=== PATIENT | female | born 1940 | race Caucasian/White ===

== ENCOUNTER 2016-04-24 13:55 | Inpatient (IN) | payer MEDICARE ==
[2016-04-24] MEDS ORDERED: ENOXAPARIN SODIUM INJ 30 MG/0.3 ML DISP.SYRIN SUBCUT ONE (15:30)
[2016-04-24 15:52] LABS: HEMATOCRIT 33.7 % (36.0-47.0); HGB HCT DIFFERENCE -0.7; MEAN CORPUSCULAR HEMOGLOBIN 30.7 pg (27.0-33.4); MEAN CORPUSCULAR HGB CONC 32.8 g/dL (32.0-36.0); MEAN CORPUSCULAR VOLUME 94 fl (80-97); WHITE BLOOD COUNT 8.2 10^3/uL (4.0-10.5)
[2016-04-24 16:10] LABS: ALANINE AMINOTRANSFERASE 22 U/L (9-52); ALBUMIN 3.7 g/dL (3.5-5.0); ALKALINE PHOSPHATASE 73 U/L (38-126); ANION GAP 10 (5-19); ASPARTATE AMINO TRANSFERASE 26 U/L (14-36); BLOOD UREA NITROGEN 7 mg/dL (7-20); CARBON DIOXIDE 26 mmol/L (22-30); CHLORIDE 103 mmol/L (98-107); CREATININE RESULT 0.84 mg/dL (0.52-1.25); POTASSIUM 4.2 mmol/L (3.6-5.0); SODIUM 139.3 mmol/L (137-145)
[2016-04-24 16:11] LABS: BILIRUBIN,TOTAL 0.4 mg/dL (0.2-1.3); CALCIUM 8.8 mg/dL (8.4-10.2); GLUCOSE 119 mg/dL (75-110)
[2016-04-24] MEDS: NORMAL SALINE 1000 ML 1,000 ML IV PRN (18:58)
[2016-04-24 20:49] LABS: APPEARANCE,URINE CLEAR; BILIRUBIN,URINE NEGATIVE (NEGATIVE); GLUCOSE, URINE NEGATIVE (NEGATIVE); KETONES,URINE NEGATIVE (NEGATIVE); LEUKOCYTE ESTERASE,URINE NEGATIVE (NEGATIVE); NITRITE,URINE NEGATIVE (NEGATIVE); PROTEIN,URINE NEGATIVE (NEGATIVE); URINE SPECIFIC GRAVITY 1.005; UROBILINOGEN,URINE NEGATIVE mg/dL (<2.0)
[2016-04-24] MEDS ORDERED: (PENDING PHARMACY ID) (Doxepin Hcl [Silenor] 6 MG) PO SCH (22:00)
[2016-04-24] MEDS ORDERED: (PENDING PHARMACY ID) (Diclofenac Sodium [Diclofenac Sodium] 4 GM) TOP SCH (22:00)
[2016-04-24] MEDS: CYCLOSPORINE 0.05% OPH EMULSIO 0.4 ML DROPERETTE OU SCH (22:16)
[2016-04-24] MEDS: METRONIDAZOLE 500 MG TABLET PO SCH (22:16)
[2016-04-24] MEDS: DONEPEZIL HCL 5 MG TABLET PO SCH (22:16)
[2016-04-24] MEDS: ALPRAZOLAM 0.5 MG TABLET PO SCH (23:07)
[2016-04-24] MEDS: OXYCODONE HCL IR 5 MG TABLET PO SCH (23:07)
[2016-04-25] MEDS: OXYCODONE HCL IR 5 MG TABLET PO SCH ×4 (06:49→23:57)
[2016-04-25] MEDS: ALPRAZOLAM 0.5 MG TABLET PO SCH ×4 (06:50→23:57)
[2016-04-25] MEDS: METRONIDAZOLE 500 MG TABLET PO SCH ×3 (06:53→21:59)
[2016-04-25] MEDS: ENOXAPARIN SODIUM INJ 30 MG/0.3 ML DISP.SYRIN SUBCUT SCH (08:17)
[2016-04-25] MEDS: VENLAFAXINE HCL 37.5 MG CAP.SR.24H PO SCH (08:18)
[2016-04-25] MEDS ORDERED: (PENDING PHARMACY ID) (Memantine Hcl [Namenda Xr] 28 MG) PO SCH (10:00)
[2016-04-25] MEDS: AMLODIPINE BESYLATE 5 MG TABLET PO SCH (12:10)
[2016-04-25] MEDS: CYCLOSPORINE 0.05% OPH EMULSIO 0.4 ML DROPERETTE OU SCH ×2 (12:11→21:59)
[2016-04-25] MEDS: LANSOPRAZOLE 30 MG TAB.RAP.DR PO SCH (12:11)
[2016-04-25] MEDS: TIOTROPIUM BROMIDE DPI 5 CAP/KIT (18 MCG/CAP) IH SCH (12:11)
[2016-04-25] MEDS: FOLIC ACID 1 MG TABLET PO SCH (12:11)
--- NOTE | 2016-04-25 18:00 | PDOC H&P ---
History of Present Illness Admission Date/PCP: 04/24/16 13:55 MARIO TO, History of Present Illness: ANCA TOSCANO is a 76 year old female, she came to the office because of profuse diarrhea and vomiting. She said she is not able to keep any food down. She had C. difficile colitis previously, March 2016. She was admitted directly from the office into the hospital. The stool was positive for C. difficile toxin Past Medical History Cardiac Medical History: Reports: Hyperlipidema, Hypertension Pulmonary Medical History: Reports: Asthma, Bronchitis, Chronic Obstructive Pulmonary Disease (COPD), Pneumonia, Tuberculosis GI Medical History: Reports: Diverticulitis Musculoskeltal Medical History: Reports: Arthritis Psychiatric Medical History: Reports: Depression Hematology: Reports: Anemia Past Surgical History Past Surgical History: Reports: Appendectomy, Carotid Endarterectomy - Left side , Cholecystectomy, Hysterectomy, Vascular Surgery - left carotid endarectomy Social History Smoking Status: Former Smoker Frequency of Alcohol Use: None Hx Recreational Drug Use: No Drugs: None Hx Prescription Drug Abuse: No Family History Family History: Reviewed & Not Pertinent Parental Family History Reviewed: Yes Children Family History Reviewed: Yes Sibling(s) Family History Reviewed.: Yes Medication/Allergy Home Medications: Lisinopril 2.5 mg PO DAILY 07/07/13 Alprazolam [Alprazolam] 0.5 mg PO Q6 04/24/16 Amlodipine Besylate [Amlodipine Besylate] 5 mg PO DAILY 04/24/16 Cyclosporine 0.05% Oph Emulsio [Restasis 0.05% Oph Emulsion Pf 0.4 ml] 1 drop OU Q12 04/24/16 Diclofenac Sodium 4 gm TOP QID 04/24/16 Donepezil HCl [Aricept 5 mg Tablet] 5 mg PO QHS 04/24/16 Doxepin HCl [Silenor] 6 mg PO QHS 04/24/16 Folic Acid [Folic Acid] 1 mg PO DAILY 04/24/16 Memantine HCl [Namenda Xr] 28 mg PO DAILY 04/24/16 Oxycodone HCl 10 mg PO Q6 04/24/16 Pantoprazole Sodium [Protonix] 40 mg PO DAILY 04/24/16 Tiotropium [place] [Spiriva Handihaler 5 Cap/Kit (18 Mcg/Cap)] 1 puff IH DAILY 04/24/16 Venlafaxine HCl ER [Effexor Xr 37.5 mg Cap.sr] 37.5 mg PO WBRKFST 04/24/16 Allergies/Adverse Reactions: levofloxacin [From Levaquin] Allergy (Unknown, Verified 07/07/13 17:41) propoxyphene napsylate [From Darvocet-N 100] Allergy (Verified 07/07/13 17:41) hydromorphone HCl [From Dilaudid] Adverse Reaction (Verified 03/09/15 21:33) morphine [Morphine] Adverse Reaction (Verified 07/07/13 17:41) VOMITING oxycodone HCl [From Percocet] Adverse Reaction (Verified 02/12/15 18:44) VOMITING Review of Systems Constitutional: PRESENT: chills Eyes: ABSENT: visual disturbances Ears: ABSENT: hearing changes Cardiovascular: ABSENT: chest pain, dyspnea on exertion, edema, orthropnea, palpitations Respiratory: ABSENT: cough, hemoptysis Gastrointestinal: PRESENT: diarrhea Genitourinary: ABSENT: dysuria, hematuria Musculoskeletal: ABSENT: joint swelling Integumentary: ABSENT: rash, wounds Neurological: ABSENT: abnormal gait, abnormal speech, confusion, dizziness, focal weakness, syncope Psychiatric: ABSENT: anxiety, depression, homidical ideation, suicidal ideation Endocrine: ABSENT: cold intolerance, heat intolerance, menstrual abnormalities, polydipsia, polyuria Hematologic/Lymphatic: ABSENT: easy bleeding, easy bruising, lymphadenopathy Physical Exam Vital Signs: Temp Pulse Resp BP Pulse Ox 97.9 F 97 18 132/70 H 93 04/25/16 15:13 04/25/16 15:13 04/25/16 15:13 04/25/16 15:13 04/25/16 15:13 Intake & Output 04/24/16 04/25/16 04/26/16 06:59 06:59 06:59 Intake Total 1350 760 Output Total 1300 600 Balance 50 160 Weight 39 kg General appearance: PRESENT: no acute distress, well-developed, well-nourished Head exam: PRESENT: atraumatic, normocephalic Eye exam: PRESENT: conjunctiva pink, EOMI, PERRLA Ear exam: PRESENT: normal external ear exam Mouth exam: PRESENT: moist, tongue midline Neck exam: PRESENT: full ROM Respiratory exam: PRESENT: clear to auscultation bro Cardiovascular exam: PRESENT: RRR, +S1, +S2 Vascular exam: PRESENT: normal capillary refill GI/Abdominal exam: PRESENT: normal bowel sounds, soft Rectal exam: PRESENT: deferred Neurological exam: PRESENT: alert, awake, oriented to person, oriented to place , oriented to time, oriented to situation, CN II-XII grossly intact. ABSENT: motor sensory deficit Skin exam: PRESENT: dry, intact, warm Results Laboratory Results: 04/24/16 15:43 04/24/16 15:43 04/24/16 20:03 Urine Color STRAW Urine Appearance CLEAR Urine pH 7.0 Ur Specific [place] 1.005 Urine Protein NEGATIVE Urine Glucose (UA) NEGATIVE Urine Ketones NEGATIVE Urine Blood NEGATIVE Urine Nitrite NEGATIVE Ur Leukocyte Esterase NEGATIVE Urine WBC (Auto) 0 Assessment & Plan - Diagnosis (1) Enterocolitis due to Clostridium difficile Is this a current diagnosis for this admission?: YesPlan: She is admitted for management
[2016-04-25] MEDS: DONEPEZIL HCL 5 MG TABLET PO SCH (21:59)
[2016-04-26] MEDS: ALPRAZOLAM 0.5 MG TABLET PO SCH ×4 (05:38→23:31)
[2016-04-26] MEDS: OXYCODONE HCL IR 5 MG TABLET PO SCH ×4 (05:38→23:31)
[2016-04-26] MEDS: METRONIDAZOLE 500 MG TABLET PO SCH ×3 (05:38→21:51)
[2016-04-26] MEDS: AMLODIPINE BESYLATE 5 MG TABLET PO SCH (11:38)
[2016-04-26] MEDS: LANSOPRAZOLE 30 MG TAB.RAP.DR PO SCH (11:39)
[2016-04-26] MEDS: VENLAFAXINE HCL 37.5 MG CAP.SR.24H PO SCH (11:39)
[2016-04-26] MEDS: FOLIC ACID 1 MG TABLET PO SCH (11:39)
[2016-04-26] MEDS: ENOXAPARIN SODIUM INJ 30 MG/0.3 ML DISP.SYRIN SUBCUT SCH (11:40)
[2016-04-26] MEDS: TIOTROPIUM BROMIDE DPI 5 CAP/KIT (18 MCG/CAP) IH SCH (11:40)
[2016-04-26] MEDS: CYCLOSPORINE 0.05% OPH EMULSIO 0.4 ML DROPERETTE OU SCH ×2 (12:20→21:51)
--- NOTE | 2016-04-26 19:35 | PDOC PROGRESS REPORT ---
Subjective Progress Note for:: 04/26/16 Subjective:: Patient was admitted because of C. difficile colitis and dehydration, she is still requiring IV fluid Physical Exam Vital Signs: Temp Pulse Resp BP Pulse Ox 98.5 F 108 H 16 146/82 H 92 04/26/16 17:06 04/26/16 17:06 04/26/16 17:06 04/26/16 17:06 04/26/16 17:06 Intake & Output 04/25/16 04/26/16 04/27/16 06:59 06:59 06:59 Intake Total 1350 2137 2500 Output Total 1300 2600 900 Balance 50 -463 1600 Weight 39 kg 39 kg General appearance: PRESENT: no acute distress Eye exam: PRESENT: PERRLA Respiratory exam: PRESENT: clear to auscultation bro Cardiovascular exam: PRESENT: +S1, +S2 GI/Abdominal exam: PRESENT: soft Neurological exam: PRESENT: alert, CN II-XII grossly intact Results Laboratory Results: 04/24/16 15:43 04/24/16 15:43 Assessment & Plan - Diagnosis (1) Enterocolitis due to Clostridium difficile Is this a current diagnosis for this admission?: Yes (2) COPD (chronic obstructive pulmonary disease) Qualifiers: COPD type: unspecified COPD Qualified Code(s): J44.9 - Chronic obstructive pulmonary disease, unspecified (3) Gastroparesis Is this a current diagnosis for this admission?: Yes (4) Hypertension Qualifiers: Hypertension type: essential hypertension Qualified Code(s): I10 - Essential (primary) hypertension Is this a current diagnosis for this admission?: Yes
[2016-04-26] MEDS: DONEPEZIL HCL 5 MG TABLET PO SCH (21:51)
[2016-04-27] MEDS: ALPRAZOLAM 0.5 MG TABLET PO SCH ×4 (05:09→23:05)
[2016-04-27] MEDS: OXYCODONE HCL IR 5 MG TABLET PO SCH ×4 (05:09→23:05)
[2016-04-27] MEDS: METRONIDAZOLE 500 MG TABLET PO SCH ×3 (05:09→23:05)
[2016-04-27] MEDS: CYCLOSPORINE 0.05% OPH EMULSIO 0.4 ML DROPERETTE OU SCH ×2 (11:22→23:05)
[2016-04-27] MEDS: ENOXAPARIN SODIUM INJ 30 MG/0.3 ML DISP.SYRIN SUBCUT SCH (12:17)
[2016-04-27] MEDS: LANSOPRAZOLE 30 MG TAB.RAP.DR PO SCH (12:18)
[2016-04-27] MEDS: FOLIC ACID 1 MG TABLET PO SCH (12:18)
[2016-04-27] MEDS: TIOTROPIUM BROMIDE DPI 5 CAP/KIT (18 MCG/CAP) IH SCH (12:18)
[2016-04-27] MEDS: VENLAFAXINE HCL 37.5 MG CAP.SR.24H PO SCH (12:18)
--- NOTE | 2016-04-27 19:11 | PDOC PROGRESS REPORT ---
Subjective Progress Note for:: 04/27/16 Subjective:: She continues to have diarrhea, she was admitted because of recurrent C. difficile colitis. With profuse diarrhea and dehydration, vancomycin will be added by mouth daily Physical Exam Vital Signs: Temp Pulse Resp BP Pulse Ox 98.3 F 97 18 143/71 H 93 04/27/16 17:35 04/27/16 17:35 04/27/16 17:35 04/27/16 17:35 04/27/16 17:35 Intake & Output 04/26/16 04/27/16 04/28/16 06:59 06:59 06:59 Intake Total 2137 3800 1740 Output Total 2600 3030 1300 Balance -463 770 440 Weight 39 kg General appearance: PRESENT: mild distress Eye exam: PRESENT: PERRLA Respiratory exam: PRESENT: clear to auscultation bro Cardiovascular exam: PRESENT: +S1, +S2 GI/Abdominal exam: PRESENT: soft Results Laboratory Results: 04/24/16 15:43 04/24/16 15:43 Assessment & Plan - Diagnosis (1) Enterocolitis due to Clostridium difficile Is this a current diagnosis for this admission?: YesPlan: Continue IV fluid and start by mouth vancomycin (2) COPD (chronic obstructive pulmonary disease) Qualifiers: COPD type: unspecified COPD Qualified Code(s): J44.9 - Chronic obstructive pulmonary disease, unspecified (3) Gastroparesis Is this a current diagnosis for this admission?: Yes (4) Hypertension Qualifiers: Hypertension type: essential hypertension Qualified Code(s): I10 - Essential (primary) hypertension Is this a current diagnosis for this admission?: Yes
[2016-04-27] MEDS ORDERED: VANCOMYCIN HCL INJ 500 MG VIAL ONE (23:04)
[2016-04-27] MEDS: DONEPEZIL HCL 5 MG TABLET PO SCH (23:05)
[2016-04-28] MEDS: OXYCODONE HCL IR 5 MG TABLET PO SCH ×4 (05:14→23:47)
[2016-04-28] MEDS: METRONIDAZOLE 500 MG TABLET PO SCH ×3 (05:14→22:40)
[2016-04-28] MEDS: ALPRAZOLAM 0.5 MG TABLET PO SCH ×4 (05:14→23:47)
[2016-04-28] MEDS: VANCOMYCIN HCL INJ 500 MG VIAL PO SCH ×4 (05:14→23:47)
[2016-04-28] MEDS: VENLAFAXINE HCL 37.5 MG CAP.SR.24H PO SCH (09:26)
[2016-04-28] MEDS: LANSOPRAZOLE 30 MG TAB.RAP.DR PO SCH (09:27)
[2016-04-28] MEDS: AMLODIPINE BESYLATE 5 MG TABLET PO SCH (09:27)
[2016-04-28] MEDS: FOLIC ACID 1 MG TABLET PO SCH (09:28)
[2016-04-28] MEDS: ENOXAPARIN SODIUM INJ 30 MG/0.3 ML DISP.SYRIN SUBCUT SCH (09:28)
[2016-04-28] MEDS: TIOTROPIUM BROMIDE DPI 5 CAP/KIT (18 MCG/CAP) IH SCH (09:28)
[2016-04-28] MEDS: CYCLOSPORINE 0.05% OPH EMULSIO 0.4 ML DROPERETTE OU SCH ×2 (09:37→22:46)
[2016-04-28] MEDS: NORMAL SALINE 1000 ML 1,000 ML IV PRN (22:40)
[2016-04-28] MEDS: DONEPEZIL HCL 5 MG TABLET PO SCH (22:40)
[2016-04-29] MEDS: ALPRAZOLAM 0.5 MG TABLET PO SCH ×4 (06:44→23:07)
[2016-04-29] MEDS: METRONIDAZOLE 500 MG TABLET PO SCH ×3 (06:45→21:35)
[2016-04-29] MEDS: OXYCODONE HCL IR 5 MG TABLET PO SCH ×4 (06:45→23:07)
[2016-04-29] MEDS: VANCOMYCIN HCL INJ 500 MG VIAL PO SCH ×4 (06:45→23:07)
[2016-04-29] MEDS: AMLODIPINE BESYLATE 5 MG TABLET PO SCH (10:18)
[2016-04-29] MEDS: FOLIC ACID 1 MG TABLET PO SCH (10:18)
[2016-04-29] MEDS: LANSOPRAZOLE 30 MG TAB.RAP.DR PO SCH (10:18)
[2016-04-29] MEDS: VENLAFAXINE HCL 37.5 MG CAP.SR.24H PO SCH (10:18)
[2016-04-29] MEDS: TIOTROPIUM BROMIDE DPI 5 CAP/KIT (18 MCG/CAP) IH SCH (10:19)
[2016-04-29] MEDS: ENOXAPARIN SODIUM INJ 30 MG/0.3 ML DISP.SYRIN SUBCUT SCH (10:19)
[2016-04-29] MEDS: CYCLOSPORINE 0.05% OPH EMULSIO 0.4 ML DROPERETTE OU SCH ×2 (11:10→21:36)
--- NOTE | 2016-04-29 20:52 | PDOC PROGRESS REPORT ---
Subjective Progress Note for:: 04/28/16 Subjective:: She continues to have diarrhea, she was admitted because of recurrent C. difficile colitis. With profuse diarrhea and dehydration, vancomycin will be added by mouth daily Physical Exam Vital Signs: Temp Pulse Resp BP Pulse Ox 98.2 F 95 14 118/62 94 04/28/16 16:15 04/28/16 16:15 04/28/16 16:15 04/28/16 16:15 04/28/16 16:15 Intake & Output 04/27/16 04/28/16 04/29/16 06:59 06:59 06:59 Intake Total 3800 2720 1700 Output Total 3030 2670 1900 Balance 770 50 -200 General appearance: PRESENT: no acute distress Eye exam: PRESENT: PERRLA Respiratory exam: PRESENT: clear to auscultation bro Cardiovascular exam: PRESENT: +S1, +S2 GI/Abdominal exam: PRESENT: soft Results Laboratory Results: 04/24/16 15:43 04/24/16 15:43 04/25/16 07:16 Stool - Stool - Final 04/25/16 07:16 Stool - Stool Stool Culture - Final NO SALMONELLA, SHIGELLA, CAMPYLOBACTER, OR E.COLI 0157 RECOVERED. NEGATIVE FOR SHIGA TOXINS 1&2. Assessment & Plan - Diagnosis (1) Enterocolitis due to Clostridium difficile Is this a current diagnosis for this admission?: Yes (2) COPD (chronic obstructive pulmonary disease) Qualifiers: COPD type: unspecified COPD Qualified Code(s): J44.9 - Chronic obstructive pulmonary disease, unspecified (3) Gastroparesis Is this a current diagnosis for this admission?: Yes (4) Hypertension Qualifiers: Hypertension type: essential hypertension Qualified Code(s): I10 - Essential (primary) hypertension Is this a current diagnosis for this admission?: Yes
[2016-04-29] MEDS: DONEPEZIL HCL 5 MG TABLET PO SCH (21:35)
[2016-04-30] MEDS: METRONIDAZOLE 500 MG TABLET PO SCH (06:17)
[2016-04-30] MEDS: ALPRAZOLAM 0.5 MG TABLET PO SCH ×2 (06:17→11:33)
[2016-04-30] MEDS: OXYCODONE HCL IR 5 MG TABLET PO SCH ×2 (06:17→11:33)
[2016-04-30] MEDS: VANCOMYCIN HCL INJ 500 MG VIAL PO SCH ×2 (06:17→11:30)
[2016-04-30] MEDS: ENOXAPARIN SODIUM INJ 30 MG/0.3 ML DISP.SYRIN SUBCUT SCH (09:56)
[2016-04-30] MEDS: LANSOPRAZOLE 30 MG TAB.RAP.DR PO SCH (10:04)
[2016-04-30] MEDS: AMLODIPINE BESYLATE 5 MG TABLET PO SCH (10:04)
[2016-04-30] MEDS: VENLAFAXINE HCL 37.5 MG CAP.SR.24H PO SCH (10:04)
[2016-04-30] MEDS: FOLIC ACID 1 MG TABLET PO SCH (10:04)
[2016-04-30] MEDS: CYCLOSPORINE 0.05% OPH EMULSIO 0.4 ML DROPERETTE OU SCH (10:45)
[2016-04-30 11:55] VITALS: BP 127/75
--- NOTE | 2016-04-30 13:28 | PDOC PROGRESS REPORT ---
Subjective Progress Note for:: 04/29/16 Subjective:: She continues to have diarrhea, she was admitted because of recurrent C. difficile colitis. With profuse diarrhea and dehydration, vancomycin will be added by mouth daily Physical Exam Vital Signs: Temp Pulse Resp BP Pulse Ox 98.0 F 95 16 140/83 H 95 04/29/16 19:32 04/29/16 19:32 04/29/16 19:32 04/29/16 19:32 04/29/16 19:32 Intake & Output 04/28/16 04/29/16 04/30/16 06:59 06:59 06:59 Intake Total 2720 3690 2100 Output Total 2670 2900 600 Balance 50 790 1500 General appearance: PRESENT: no acute distress Eye exam: PRESENT: PERRLA Cardiovascular exam: PRESENT: +S1, +S2 GI/Abdominal exam: PRESENT: soft Neurological exam: PRESENT: alert Results Laboratory Results: 04/24/16 15:43 04/24/16 15:43 Assessment & Plan - Diagnosis (1) Enterocolitis due to Clostridium difficile Is this a current diagnosis for this admission?: Yes (2) COPD (chronic obstructive pulmonary disease) Qualifiers: COPD type: unspecified COPD Qualified Code(s): J44.9 - Chronic obstructive pulmonary disease, unspecified (3) Gastroparesis Is this a current diagnosis for this admission?: Yes (4) Hypertension Qualifiers: Hypertension type: essential hypertension Qualified Code(s): I10 - Essential (primary) hypertension Is this a current diagnosis for this admission?: Yes
--- NOTE | 2016-04-30 13:30 | PDOC DISCHARGE SUMMARY ---
General - Admit/Disc Date/PCP Admission Date/Primary Care Provider: 04/27/16 19:58 MARIO TO, Discharge Date: 04/30/16 - Discharge Diagnosis (1) Enterocolitis due to Clostridium difficile Is this a current diagnosis for this admission?: Yes (3) Hypertension Is this a current diagnosis for this admission?: Yes - Additional Information Discharge Activity: Activity As Tolerated, Balance Activity w/Rest, Slowly Increase Activity Home Medications: Lisinopril 2.5 mg PO DAILY 07/07/13 Alprazolam [Alprazolam] 0.5 mg PO Q6 04/24/16 Amlodipine Besylate [Amlodipine Besylate] 5 mg PO DAILY 04/24/16 Cyclosporine 0.05% Oph Emulsio [Restasis 0.05% Oph Emulsion Pf 0.4 ml] 1 drop OU Q12 04/24/16 Diclofenac Sodium 4 gm TOP QID 04/24/16 Donepezil HCl [Aricept 5 mg Tablet] 5 mg PO QHS 04/24/16 Doxepin HCl [Silenor] 6 mg PO QHS 04/24/16 Folic Acid [Folic Acid] 1 mg PO DAILY 04/24/16 Memantine HCl [Namenda Xr] 28 mg PO DAILY 04/24/16 Oxycodone HCl 10 mg PO Q6 04/24/16 Pantoprazole Sodium [Protonix] 40 mg PO DAILY 04/24/16 Tiotropium [place] [Spiriva Handihaler 5 Cap/Kit (18 Mcg/Cap)] 1 puff IH DAILY 04/24/16 Venlafaxine HCl ER [Effexor Xr 37.5 mg Cap.sr] 37.5 mg PO WBRKFST 04/24/16 History of Present Illness History of Present Illness: ANCA TOSCANO is a 76 year old female, she came to the office because of profuse diarrhea and vomiting. She said she is not able to keep any food down. She had C. difficile colitis previously, March 2016. She was admitted directly from the office into the hospital. The stool was positive for C. difficile toxin Hospital Course Hospital Course: Patient was admitted because of recurrent C. difficile colitis with dehydration , she was treated with IV fluid and by mouth Flagyl. She continued to have diarrhea and by mouth vancomycin was added to the regimen. She is now stable enough for discharge Physical Exam Vital Signs: Temp Pulse Resp BP Pulse Ox 97.6 F 91 16 127/75 H 100 04/30/16 11:49 04/30/16 11:49 04/30/16 11:49 04/30/16 11:49 04/30/16 11:49 Intake & Output 04/29/16 04/30/16 05/01/16 06:59 06:59 06:59 Intake Total 3690 2880 Output Total 2900 2500 Balance 790 380 General appearance: PRESENT: no acute distress Eye exam: PRESENT: PERRLA Cardiovascular exam: PRESENT: +S1, +S2 GI/Abdominal exam: PRESENT: soft Neurological exam: PRESENT: alert Results Laboratory Results: 04/24/16 15:43 04/24/16 15:43
== END 2016-04-30 13:01 | disposition home or self-care (01) | DRG 372 ==
LOC: 4W 13:55 → OBSVTOIN 04-27 19:58
PROVIDERS: ADMIT Internal Medicine; ATTEND Internal Medicine
DX: A04.7 Enterocolitis due to Clostridium difficile (principal); Z68.1 Body mass index [BMI] 19.9 or less, adult; R63.6 Underweight; J44.9 Chronic obstructive pulmonary disease, unspecified; K31.84 Gastroparesis; I10 Essential (primary) hypertension; E86.0 Dehydration; E78.5 Hyperlipidemia, unspecified; J45.909 Unspecified asthma, uncomplicated; M19.90 Unspecified osteoarthritis, unspecified site; Z79.899 Other long term (current) drug therapy; Z90.49 Acquired absence of other specified parts of digestive tract; Z90.710 Acquired absence of both cervix and uterus; Z87.891 Personal history of nicotine dependence; Z88.3 Allergy status to other anti-infective agents; Z88.6 Allergy status to analgesic agent; Z86.73 Personal history of transient ischemic attack (TIA), and cerebral infarction without residual deficits; Z86.11 Personal history of tuberculosis
CPT/HCPCS: 36415; 80048; 80076; 81001; 85027; 87045; 87205; 87493; G0378; G0379; J1650; J3370; J3490; J7030

== ENCOUNTER 2016-05-19 12:43 | Inpatient (IN) | payer MEDICARE ==
[2016-05-19 14:54] LABS: APPEARANCE,URINE CLEAR; BILIRUBIN,URINE NEGATIVE (NEGATIVE); GLUCOSE, URINE NEGATIVE (NEGATIVE); KETONES,URINE NEGATIVE (NEGATIVE); LEUKOCYTE ESTERASE,URINE NEGATIVE (NEGATIVE); NITRITE,URINE NEGATIVE (NEGATIVE); PROTEIN,URINE NEGATIVE (NEGATIVE); URINE SPECIFIC GRAVITY 1.003; UROBILINOGEN,URINE NEGATIVE mg/dL (<2.0)
[2016-05-19] MEDS: 1/2 NORMAL SALINE 1,000 ML IV PRN (15:07)
[2016-05-19 16:04] LABS: HEMATOCRIT 33.3 % (36.0-47.0); HEMOGLOBIN 11.3 g/dL (12.0-15.5); HGB HCT DIFFERENCE 0.6; MEAN CORPUSCULAR HEMOGLOBIN 30.8 pg (27.0-33.4); MEAN CORPUSCULAR HGB CONC 33.9 g/dL (32.0-36.0); MEAN CORPUSCULAR VOLUME 91 fl (80-97); RED BLOOD COUNT 3.66 10^6/uL (3.72-5.28); RED CELL DISTRIBUTION WIDTH 13.8 % (11.5-14.0); WHITE BLOOD COUNT 6.4 10^3/uL (4.0-10.5)
[2016-05-19 16:20] LABS: ALANINE AMINOTRANSFERASE 20 U/L (9-52); ALBUMIN 3.4 g/dL (3.5-5.0); ALKALINE PHOSPHATASE 46 U/L (38-126); ANION GAP 6 (5-19); ASPARTATE AMINO TRANSFERASE 30 U/L (14-36); BILIRUBIN,TOTAL 0.5 mg/dL (0.2-1.3); BLOOD UREA NITROGEN 4 mg/dL (7-20); CALCIUM 8.7 mg/dL (8.4-10.2); CARBON DIOXIDE 26 mmol/L (22-30); CHLORIDE 95 mmol/L (98-107); CREATININE RESULT 0.65 mg/dL (0.52-1.25); GLUCOSE 114 mg/dL (75-110); POTASSIUM 4.5 mmol/L (3.6-5.0); SODIUM 126.9 mmol/L (137-145); TOTAL PROTEIN 5.7 g/dL (6.3-8.2)
[2016-05-19] MEDS ORDERED: (PENDING PHARMACY ID) (Diclofenac Sodium [Diclofenac Sodium] 4 GM) TOP SCH (18:00)
[2016-05-19] MEDS: ALPRAZOLAM 0.5 MG TABLET PO SCH ×2 (18:45→23:24)
[2016-05-19] MEDS: OXYCODONE HCL IR 5 MG TABLET PO PRN (20:47)
--- NOTE | 2016-05-19 21:51 | PDOC H&P ---
[id number] History of Present Illness: ANCA TOSCANO is a 76 year old female, she has chronic multiple comorbid conditions including COPD, CVA, recurrent C. difficile colitis infection. She is presently on by mouth Flagyl. She came to the office today because of abdominal pain, inability to keep food down, concern for dehydration, lack of energy vomiting, diarrhea is improved. She was admitted directly from the office into the hospital for evaluation and observation. The initial blood work revealed hyponatremia with serum sodium of 126 in the setting of hypovolemia. Past Medical History Cardiac Medical History: Reports: Hyperlipidema, Hypertension Pulmonary Medical History: Reports: Asthma, Bronchitis, Chronic Obstructive Pulmonary Disease (COPD), Pneumonia, Tuberculosis GI Medical History: Reports: Diverticulitis, Gastroesophageal Reflux Disease Musculoskeltal Medical History: Reports: Arthritis Psychiatric Medical History: Reports: Depression Hematology: Reports: Anemia Past Surgical History Past Surgical History: Reports: Appendectomy, Carotid Endarterectomy - Left side , Cholecystectomy, Hysterectomy, Vascular Surgery - left carotid endarectomy Social History Smoking Status: Former Smoker Frequency of Alcohol Use: None Hx Recreational Drug Use: No Drugs: None Hx Prescription Drug Abuse: No - Advance Directive Resuscitation Status: Full Code Family History Family History: Reviewed & Not Pertinent Parental Family History Reviewed: Yes Children Family History Reviewed: Yes Sibling(s) Family History Reviewed.: Yes Medication/Allergy Home Medications: Lisinopril 2.5 mg PO DAILY 07/07/13 Alprazolam [Alprazolam] 0.5 mg PO Q6 04/24/16 Amlodipine Besylate [Amlodipine Besylate] 5 mg PO DAILY 04/24/16 Cyclosporine 0.05% Oph Emulsio [Restasis 0.05% Oph Emulsion Pf 0.4 ml] 1 drop OU Q12 04/24/16 Diclofenac Sodium 4 gm TOP QID 04/24/16 Donepezil HCl [Aricept 5 mg Tablet] 5 mg PO QHS 04/24/16 Doxepin HCl [Silenor] 6 mg PO QHS 04/24/16 Folic Acid [Folic Acid] 1 mg PO DAILY 04/24/16 Memantine HCl [Namenda Xr] 28 mg PO DAILY 04/24/16 Oxycodone HCl 10 mg PO Q6 04/24/16 Pantoprazole Sodium [Protonix] 40 mg PO DAILY 01/19/17 Tiotropium [place] [Spiriva Handihaler 5 Cap/Kit (18 Mcg/Cap)] 1 puff IH DAILY 04/24/16 Venlafaxine HCl ER [Effexor Xr 37.5 mg Cap.sr] 37.5 mg PO WBRKFST 04/24/16 Allergies/Adverse Reactions: levofloxacin [From Levaquin] Allergy (Unknown, Verified 07/07/13 17:41) propoxyphene napsylate [From Darvocet-N 100] Allergy (Verified 07/07/13 17:41) hydromorphone HCl [From Dilaudid] Adverse Reaction (Verified 03/09/15 21:33) morphine [Morphine] Adverse Reaction (Verified 07/07/13 17:41) VOMITING Review of Systems Constitutional: PRESENT: fatigue, weakness Eyes: ABSENT: as per HPI, visual disturbances, other Ears: ABSENT: as per HPI, hearing changes, other Nose, Mouth, and Throat: ABSENT: as per HPI, headache(s), mouth pain, sore throat, vertigo, other Cardiovascular: ABSENT: as per HPI, chest pain, dyspnea on exertion, edema, orthropnea, palpitations, other Gastrointestinal: PRESENT: nausea, vomiting Neurological: PRESENT: abnormal gait Endocrine: PRESENT: cold intolerance Physical Exam Vital Signs: Temp Pulse Resp BP Pulse Ox 98.2 F 95 16 126/72 H 98 05/19/16 19:39 05/19/16 19:39 05/19/16 19:39 05/19/16 19:39 05/19/16 19:39 Intake & Output 05/18/16 05/19/16 05/20/16 06:59 06:59 06:59 Intake Total 120 Output Total 400 Balance -280 Weight 40.1 kg General appearance: PRESENT: thin Eye exam: PRESENT: PERRLA Respiratory exam: PRESENT: clear to auscultation bro Cardiovascular exam: PRESENT: +S1, +S2 GI/Abdominal exam: PRESENT: soft, tenderness Neurological exam: PRESENT: alert, CN II-XII grossly intact Skin exam: PRESENT: other - Loss of skin turgor Results Laboratory Results: 05/19/16 15:20 05/19/16 15:20 05/19/16 05/19/16 05/19/16 14:30 15:20 15:20 WBC 6.4 RBC 3.66 L Hgb 11.3 L Hct 33.3 L MCV 91 MCH 30.8 MCHC 33.9 RDW 13.8 Plt Count 205 Sodium 126.9 L Potassium 4.5 Chloride 95 L Carbon Dioxide 26 Anion Gap 6 BUN 4 L Creatinine 0.65 Est GFR ( Amer) > 60 Est GFR (Non-Af Amer) > 60 Glucose 114 H Calcium 8.7 Total Bilirubin 0.5 AST 30 ALT 20 Alkaline Phosphatase 46 Total Protein 5.7 L Albumin 3.4 L Urine Color STRAW Urine Appearance CLEAR Urine pH 7.0 Ur Specific [place] 1.003 Urine Protein NEGATIVE Urine Glucose (UA) NEGATIVE Urine Ketones NEGATIVE Urine Blood NEGATIVE Urine Nitrite NEGATIVE Ur Leukocyte Esterase NEGATIVE Urine WBC (Auto) 1 Urine RBC (Auto) 0 Assessment & Plan - Diagnosis (1) Hyponatremia Is this a current diagnosis for this admission?: YesPlan: There is hypovolemia and hyponatremia. She will be treated with IV normal saline, she has appropriate ADH secretion, the serum osmolality is low, the urine osmosity is low and the urine sodium is high in the setting of hypovolemia due to dehydration (2) Abdominal pain Qualifiers: Abdominal location: generalized Qualified Code(s): R10.84 - Generalized abdominal pain Is this a current diagnosis for this admission?: YesPlan: GI consultation will be requested (3) Vomiting Qualifiers: Vomiting type: unspecified Vomiting Intractability: intractable Nausea presence: with nausea Qualified Code(s): R11.2 - Nausea with vomiting, unspecified Is this a current diagnosis for this admission?: Yes
[2016-05-19] MEDS ORDERED: (PENDING PHARMACY ID) (Doxepin Hcl [Silenor] 6 MG) PO SCH (22:00)
[2016-05-19] MEDS: CYCLOSPORINE 0.05% OPH EMULSIO 0.4 ML DROPERETTE OU SCH (23:24)
[2016-05-19] MEDS: DONEPEZIL HCL 5 MG TABLET PO SCH (23:24)
[2016-05-19] MEDS: METRONIDAZOLE 500 MG TABLET PO SCH (23:24)
[2016-05-20] MEDS: ALPRAZOLAM 0.5 MG TABLET PO SCH ×4 (05:33→21:13)
[2016-05-20] MEDS: METRONIDAZOLE 500 MG TABLET PO SCH ×3 (05:33→21:13)
[2016-05-20] MEDS: 1/2 NORMAL SALINE 1,000 ML IV PRN (09:11)
[2016-05-20] MEDS: AMLODIPINE BESYLATE 5 MG TABLET PO SCH (09:12)
[2016-05-20] MEDS: LANSOPRAZOLE 30 MG TAB.RAP.DR PO SCH (09:12)
[2016-05-20] MEDS: VENLAFAXINE HCL 37.5 MG CAP.SR.24H PO SCH (09:13)
[2016-05-20] MEDS: FOLIC ACID 1 MG TABLET PO SCH (09:13)
[2016-05-20] MEDS: CYCLOSPORINE 0.05% OPH EMULSIO 0.4 ML DROPERETTE OU SCH ×2 (09:13→21:14)
[2016-05-20] MEDS: TIOTROPIUM BROMIDE DPI 5 CAP/KIT (18 MCG/CAP) IH SCH (09:14)
[2016-05-20] MEDS: OXYCODONE HCL IR 5 MG TABLET PO PRN ×2 (09:33→21:13)
[2016-05-20] MEDS ORDERED: (PENDING PHARMACY ID) (Memantine Hcl [Namenda Xr] 28 MG) PO SCH (10:00)
[2016-05-20] MEDS ORDERED: NALOXONE HCL INJ/PF 0.4 MG/1 ML SDV ONE (15:49)
[2016-05-20] MEDS ORDERED: PROMETHAZINE HCL INJ 25 MG/1 ML VIAL ONE (15:49)
[2016-05-20] MEDS ORDERED: EPINEPHRINE INJ 1 MG/10 ML DISP.SYRIN ONE (15:50)
[2016-05-20] MEDS ORDERED: FENTANYL CITRATE INJ/PF 100 MCG/2 ML AMPUL ONE (15:50)
[2016-05-20] MEDS ORDERED: FLUMAZENIL INJ 0.5 MG/5 ML VIAL IV ONE (15:50)
[2016-05-20] MEDS ORDERED: GLUCAGON,HUMAN RECOMB 1 MG INJ ONE (15:50)
[2016-05-20] MEDS: MIDAZOLAM 2 MG/2 ML INJ ONE ×2 (17:52→17:57)
--- NOTE | 2016-05-20 18:07 | PDOC CONSULTATION ---
Consultation Consult Date: 05/19/16 History of Present Illness Admission Date/PCP: 05/19/16 12:45 MARIO TO MD History of Present Illness: This is a 76-year-old patient admitted on 05/19/2016 with multiple complaints including abdominal pain, vomiting, and diarrhea. She was recently diagnosed with C. difficile infection and is on Flagyl. She does feel better today with no vomiting but still has some abdominal pain. On admission she was hyponatremic. She has a chronic history of abdominal pain and I had evaluated her with endoscopy and colonoscopy over the last few years. She had an EGD, colonoscopy , and capsule endoscopy back in 2014. Past Medical History Cardiac Medical History: Reports: Hyperlipidema, Hypertension Pulmonary Medical History: Reports: Asthma, Bronchitis, Chronic Obstructive Pulmonary Disease (COPD), Pneumonia, Tuberculosis GI Medical History: Reports: Diverticulitis, Gastroesophageal Reflux Disease Musculoskeltal Medical History: Reports: Arthritis Psychiatric Medical History: Reports: Depression Hematology: Reports: Anemia Past Surgical History Past Surgical History: EGD and colonoscopy in 2014 Past Surgical History: Reports: Appendectomy, Carotid Endarterectomy - Left side , Cholecystectomy, Hysterectomy, Vascular Surgery - left carotid endarectomy Social History Smoking Status: Former Smoker Frequency of Alcohol Use: None Hx Recreational Drug Use: No Drugs: None Hx Prescription Drug Abuse: No - Advance Directive Resuscitation Status: Full Code Family History Family History: Reviewed & Not Pertinent Parental Family History Reviewed: No Children Family History Reviewed: NA Sibling(s) Family History Reviewed.: NA Medication/Allergy Home Medications: Lisinopril 2.5 mg PO DAILY 07/07/13 Alprazolam [Alprazolam] 0.5 mg PO Q6 04/24/16 Amlodipine Besylate [Amlodipine Besylate] 5 mg PO DAILY 04/24/16 Cyclosporine 0.05% Oph Emulsio [Restasis 0.05% Oph Emulsion Pf 0.4 ml] 1 drop OU Q12 04/24/16 Diclofenac Sodium 4 gm TOP QID 04/24/16 Donepezil HCl [Aricept 5 mg Tablet] 5 mg PO QHS 04/24/16 Doxepin HCl [Silenor] 6 mg PO QHS 04/24/16 Folic Acid [Folic Acid] 1 mg PO DAILY 04/24/16 Memantine HCl [Namenda Xr] 28 mg PO DAILY 04/24/16 Oxycodone HCl 10 mg PO Q6 04/24/16 Pantoprazole Sodium [Protonix] 40 mg PO DAILY 04/24/16 Tiotropium [place] [Spiriva Handihaler 5 Cap/Kit (18 Mcg/Cap)] 1 puff IH DAILY 04/24/16 Venlafaxine HCl ER [Effexor Xr 37.5 mg Cap.sr] 37.5 mg PO WBRKFST 04/24/16 Allergies/Adverse Reactions: levofloxacin [From Levaquin] Allergy (Unknown, Verified 07/07/13 17:41) propoxyphene napsylate [From Darvocet-N 100] Allergy (Verified 07/07/13 17:41) hydromorphone HCl [From Dilaudid] Adverse Reaction (Verified 03/09/15 21:33) morphine [Morphine] Adverse Reaction (Verified 07/07/13 17:41) VOMITING Physical Exam Vital Signs: Temp Pulse Resp BP Pulse Ox 98.1 F 90 19 124/66 98 05/20/16 16:08 05/20/16 17:45 05/20/16 17:45 05/20/16 17:45 05/20/16 17:45 Intake & Output 05/19/16 05/20/16 05/21/16 06:59 06:59 06:59 Intake Total 845 Output Total 2500 Balance -1655 Weight 40.1 kg Exam: General: Patient is alert and looks well. HEENT: There is no pallor or jaundice. Patient is thin PERRLA. Oropharynx normal Respiratory: There is kyphosis. No respiratory distress. Chest wall palpitation was unremarkable. Breath sounds were normal Cardiovascular: Heart sounds 1 and 2 normal with no murmurs. Abdominal: Not distended. Soft and with mild epigastric tenderness. Liver and spleen not palpable. No ascites demonstrated. Bowel sounds active. Rectal examination was deferred. Extremities: No edema Neurological: Alert and oriented x4. Grossly nonfocal. Normal speech Skin: No significant rash Psychological: Normal affect Results Laboratory Results: 05/19/16 15:20 05/19/16 15:20 05/19/16 05/19/16 14:30 22:18 Serum Osmolality 266 L Urine Osmolality 142 L Assessment & Plan - Diagnosis (1) Abdominal pain Qualifiers: Abdominal location: generalized Qualified Code(s): R10.84 - Generalized abdominal pain Is this a current diagnosis for this admission?: YesPlan: She has chronic abdominal pain with negative evaluations in the past. She will undergo an EGD to rule out ulcers. I suspect this is her functional pain. She has had multiple CAT scans of the abdomen in the past. Had also tried her on Effexor in 2015 (3) Enterocolitis due to Clostridium difficile Is this a current diagnosis for this admission?: Yes (4) Vomiting Qualifiers: Vomiting type: unspecified Vomiting Intractability: intractable Nausea presence: with nausea Qualified Code(s): R11.2 - Nausea with vomiting, unspecified Is this a current diagnosis for this admission?: Yes
--- NOTE | 2016-05-20 18:09 | Operative Report ---
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 The upper endoscope was inserted into the esophagus under direct vision and advanced into the stomach. The duodenum was entered and examined to the second part. Endoscope was then slowly pulled out of the patient as the mucosa was examined into details. Patient tolerated procedure well. Findings Esophagus: Normal Z-line at: 35 cm Antrum: Resected Body: Diffuse mild erythema Fundus: Mild erythema Plan: Await pathology. Continue Prevacid OPERATION: ;.
[2016-05-20 19:22] LABS: ABSOLUTE BASOPHILS # (AUTO) 0.1 10^3/uL (0.0-0.2); ABSOLUTE EOSINOPHILS # (AUTO) 0.2 10^3/uL (0.0-0.6); ABSOLUTE LYMPHOCYTES (AUTO) 0.7 10^3/uL (0.5-4.7); ABSOLUTE MONOCYTES (AUTO) 0.7 10^3/uL (0.1-1.4); ABSOLUTE NEUT (AUTO) 11.4 10^3/uL (1.7-8.2); BASOPHILS % (AUTO) 0.6 % (0-2); EOSINOPHILS % (AUTO) 1.3 % (0-6); HEMATOCRIT 34.7 % (36.0-47.0); HEMOGLOBIN 11.3 g/dL (12.0-15.5); HGB HCT DIFFERENCE -0.8; LYMPHOCYTES % (AUTO) 5.6 % (13-45); MEAN CORPUSCULAR HEMOGLOBIN 30.3 pg (27.0-33.4); MEAN CORPUSCULAR HGB CONC 32.7 g/dL (32.0-36.0); MEAN CORPUSCULAR VOLUME 93 fl (80-97); MONOCYTES % (AUTO) 5.7 % (3-13); RED BLOOD COUNT 3.75 10^6/uL (3.72-5.28); RED CELL DISTRIBUTION WIDTH 14.1 % (11.5-14.0); SEGMENTED NEUTROPHILS % (AUTO) 86.8 % (42-78)
[2016-05-20 19:23] LABS: WHITE BLOOD COUNT 13.2 10^3/uL (4.0-10.5)
[2016-05-20 19:32] LABS: ALANINE AMINOTRANSFERASE 29 U/L (9-52); ALBUMIN 2.7 g/dL (3.5-5.0); ALKALINE PHOSPHATASE 44 U/L (38-126); ASPARTATE AMINO TRANSFERASE 40 U/L (14-36); BILIRUBIN,TOTAL 0.5 mg/dL (0.2-1.3); BLOOD UREA NITROGEN 5 mg/dL (7-20); CALCIUM 8.2 mg/dL (8.4-10.2); CREATININE RESULT 0.71 mg/dL (0.52-1.25); GLUCOSE 83 mg/dL (75-110); TOTAL PROTEIN 5.5 g/dL (6.3-8.2)
[2016-05-20 19:47] LABS: ANION GAP 7 (5-19); CARBON DIOXIDE 26 mmol/L (22-30); CHLORIDE 96 mmol/L (98-107); POTASSIUM 4.7 mmol/L (3.6-5.0); SODIUM 128.8 mmol/L (137-145)
[2016-05-20] MEDS: DONEPEZIL HCL 5 MG TABLET PO SCH (21:13)
[2016-05-21] MEDS: OXYCODONE HCL IR 5 MG TABLET PO PRN ×2 (03:44→20:07)
[2016-05-21] MEDS: ALPRAZOLAM 0.5 MG TABLET PO SCH ×3 (05:19→17:27)
[2016-05-21] MEDS: METRONIDAZOLE 500 MG TABLET PO SCH ×3 (05:45→22:07)
[2016-05-21 07:25] LABS: ALANINE AMINOTRANSFERASE 20 U/L (9-52); ALBUMIN 2.8 g/dL (3.5-5.0); ALKALINE PHOSPHATASE 44 U/L (38-126); ANION GAP 5 (5-19); ASPARTATE AMINO TRANSFERASE 29 U/L (14-36); BILIRUBIN,TOTAL 0.5 mg/dL (0.2-1.3); BLOOD UREA NITROGEN 5 mg/dL (7-20); CALCIUM 8.2 mg/dL (8.4-10.2); CARBON DIOXIDE 27 mmol/L (22-30); CHLORIDE 97 mmol/L (98-107); CREATININE RESULT 0.66 mg/dL (0.52-1.25); GLUCOSE 106 mg/dL (75-110); POTASSIUM 4.2 mmol/L (3.6-5.0); SODIUM 129.3 mmol/L (137-145); TOTAL PROTEIN 4.9 g/dL (6.3-8.2)
[2016-05-21] MEDS: VENLAFAXINE HCL 37.5 MG CAP.SR.24H PO SCH (07:53)
[2016-05-21] MEDS: CYCLOSPORINE 0.05% OPH EMULSIO 0.4 ML DROPERETTE OU SCH ×2 (11:08→22:07)
[2016-05-21] MEDS: TIOTROPIUM BROMIDE DPI 5 CAP/KIT (18 MCG/CAP) IH SCH (11:08)
[2016-05-21] MEDS: LANSOPRAZOLE 30 MG TAB.RAP.DR PO SCH (11:09)
[2016-05-21] MEDS: FOLIC ACID 1 MG TABLET PO SCH (11:09)
[2016-05-21] MEDS: AMLODIPINE BESYLATE 5 MG TABLET PO SCH (11:09)
--- NOTE | 2016-05-21 16:59 | PDOC PROGRESS REPORT ---
Subjective Progress Note for:: 05/20/16 Subjective:: Patient had EGD done today and it showed gastritis. Physical Exam Vital Signs: Temp Pulse Resp BP Pulse Ox 98.1 F 97 19 114/72 96 05/20/16 16:08 05/20/16 18:25 05/20/16 18:25 05/20/16 18:25 05/20/16 18:25 Intake & Output 05/19/16 05/20/16 05/21/16 06:59 06:59 06:59 Intake Total 845 220 Output Total 2500 1450 Balance -1655 -1230 Weight 40.1 kg General appearance: PRESENT: no acute distress Eye exam: PRESENT: PERRLA Respiratory exam: PRESENT: clear to auscultation bro Cardiovascular exam: PRESENT: +S1, +S2 GI/Abdominal exam: PRESENT: soft Results Laboratory Results: 05/19/16 05/19/16 14:30 22:18 Serum Osmolality 266 L Urine Osmolality 142 L Assessment & Plan - Diagnosis (1) Hyponatremia Is this a current diagnosis for this admission?: Yes (2) Abdominal pain Qualifiers: Abdominal location: generalized Qualified Code(s): R10.84 - Generalized abdominal pain Is this a current diagnosis for this admission?: Yes (3) Vomiting Qualifiers: Vomiting type: unspecified Vomiting Intractability: intractable Nausea presence: with nausea Qualified Code(s): R11.2 - Nausea with vomiting, unspecified Is this a current diagnosis for this admission?: Yes
[2016-05-21] MEDS: NORMAL SALINE 1000 ML 1,000 ML IV PRN (17:22)
[2016-05-21] MEDS: MAG HYDROX/AL HYDROX/SIMETH SUSP 30 ML UDCUP PO PRN (18:30)
[2016-05-21] MEDS: DONEPEZIL HCL 5 MG TABLET PO SCH (22:07)
[2016-05-22] MEDS: ALPRAZOLAM 0.5 MG TABLET PO SCH ×4 (01:58→18:01)
[2016-05-22] MEDS: METRONIDAZOLE 500 MG TABLET PO SCH ×2 (06:22→13:31)
[2016-05-22] MEDS: OXYCODONE HCL IR 5 MG TABLET PO PRN ×3 (06:22→18:01)
[2016-05-22] MEDS: VENLAFAXINE HCL 37.5 MG CAP.SR.24H PO SCH (07:46)
[2016-05-22] MEDS: TIOTROPIUM BROMIDE DPI 5 CAP/KIT (18 MCG/CAP) IH SCH (09:41)
[2016-05-22] MEDS: CYCLOSPORINE 0.05% OPH EMULSIO 0.4 ML DROPERETTE OU SCH ×2 (09:42→21:59)
[2016-05-22] MEDS: FOLIC ACID 1 MG TABLET PO SCH (09:43)
[2016-05-22] MEDS: AMLODIPINE BESYLATE 5 MG TABLET PO SCH (09:43)
[2016-05-22] MEDS: LANSOPRAZOLE 30 MG TAB.RAP.DR PO SCH (09:43)
[2016-05-22 14:52] LABS: ALANINE AMINOTRANSFERASE 25 U/L (9-52); ALBUMIN 2.3 g/dL (3.5-5.0); ALKALINE PHOSPHATASE 45 U/L (38-126); ANION GAP 5 (5-19); ASPARTATE AMINO TRANSFERASE 25 U/L (14-36); BILIRUBIN,TOTAL 0.3 mg/dL (0.2-1.3); BLOOD UREA NITROGEN 5 mg/dL (7-20); CALCIUM 7.5 mg/dL (8.4-10.2); CARBON DIOXIDE 26 mmol/L (22-30); CHLORIDE 101 mmol/L (98-107); CREATININE RESULT 0.67 mg/dL (0.52-1.25); GLUCOSE 92 mg/dL (75-110); POTASSIUM 4.2 mmol/L (3.6-5.0); SODIUM 131.7 mmol/L (137-145); TOTAL PROTEIN 4.8 g/dL (6.3-8.2)
--- NOTE | 2016-05-22 18:14 | PDOC PROGRESS REPORT ---
Subjective Progress Note for:: 05/22/16 Subjective:: Patient was admitted for observation initially because of dehydration, hyponatremia. She continues to have difficulty with food intake, she was not able to keep any food down, she has nausea and vomiting. These symptoms are probably related to the Flagyl That she is taking, the Flagyl PO will be discontinued and transition on to intravenous Flagyl. Physical Exam Vital Signs: Temp Pulse Resp BP Pulse Ox 98.6 F 57 L 12 111/68 94 05/22/16 16:00 05/22/16 16:00 05/22/16 16:00 05/22/16 16:00 05/22/16 16:00 Intake & Output 05/21/16 05/22/16 05/23/16 06:59 06:59 06:59 Intake Total 395 1100 Output Total 2650 1700 Balance -2255 -600 Weight 40.1 kg General appearance: PRESENT: mild distress Eye exam: PRESENT: PERRLA Respiratory exam: PRESENT: rhonchi Cardiovascular exam: PRESENT: +S1, +S2 GI/Abdominal exam: PRESENT: soft Results Laboratory Results: 05/20/16 18:59 05/22/16 14:26 05/22/16 14:26 Sodium 131.7 L Potassium 4.2 Chloride 101 Carbon Dioxide 26 Anion Gap 5 BUN 5 L Creatinine 0.67 Est GFR ( Amer) > 60 Est GFR (Non-Af Amer) > 60 Glucose 92 Calcium 7.5 L Total Bilirubin 0.3 AST 25 ALT 25 Alkaline Phosphatase 45 Total Protein 4.8 L Albumin 2.3 L Assessment & Plan - Diagnosis (1) Hyponatremia Is this a current diagnosis for this admission?: Yes (2) Abdominal pain Qualifiers: Abdominal location: generalized Qualified Code(s): R10.84 - Generalized abdominal pain Is this a current diagnosis for this admission?: Yes (3) Vomiting Qualifiers: Vomiting type: unspecified Vomiting Intractability: intractable Nausea presence: with nausea Qualified Code(s): R11.2 - Nausea with vomiting, unspecified Is this a current diagnosis for this admission?: Yes
[2016-05-22] MEDS ORDERED: METRONIDAZOLE 500 MG/NS RTU 100 ML IV ONE (19:00)
[2016-05-22] MEDS: DONEPEZIL HCL 5 MG TABLET PO SCH (21:58)
[2016-05-23] MEDS: ALPRAZOLAM 0.5 MG TABLET PO SCH ×4 (00:30→17:20)
[2016-05-23] MEDS: OXYCODONE HCL IR 5 MG TABLET PO PRN ×3 (00:30→18:17)
[2016-05-23] MEDS: METRONIDAZOLE 500 MG/NS RTU 100 ML IV SCH ×4 (00:30→17:20)
[2016-05-23] MEDS: VENLAFAXINE HCL 37.5 MG CAP.SR.24H PO SCH (08:39)
[2016-05-23] MEDS: NORMAL SALINE 1000 ML 1,000 ML IV PRN (08:45)
[2016-05-23] MEDS: AMLODIPINE BESYLATE 5 MG TABLET PO SCH (11:01)
[2016-05-23] MEDS: LANSOPRAZOLE 30 MG TAB.RAP.DR PO SCH (11:02)
[2016-05-23] MEDS: FOLIC ACID 1 MG TABLET PO SCH (11:02)
[2016-05-23] MEDS: CYCLOSPORINE 0.05% OPH EMULSIO 0.4 ML DROPERETTE OU SCH ×2 (11:02→22:36)
[2016-05-23] MEDS: TIOTROPIUM BROMIDE DPI 5 CAP/KIT (18 MCG/CAP) IH SCH (11:02)
[2016-05-23 18:59] LABS: ABSOLUTE EOSINOPHILS # (AUTO) 0.2 10^3/uL (0.0-0.6); ABSOLUTE LYMPHOCYTES (AUTO) 0.7 10^3/uL (0.5-4.7); ABSOLUTE NEUT (AUTO) 8.5 10^3/uL (1.7-8.2); BASOPHILS % (AUTO) 0.5 % (0-2); EOSINOPHILS % (AUTO) 1.9 % (0-6); HEMATOCRIT 30.6 % (36.0-47.0); HEMOGLOBIN 10.3 g/dL (12.0-15.5); HGB HCT DIFFERENCE 0.3; LYMPHOCYTES % (AUTO) 6.5 % (13-45); MEAN CORPUSCULAR HEMOGLOBIN 30.8 pg (27.0-33.4); MEAN CORPUSCULAR HGB CONC 33.7 g/dL (32.0-36.0); MEAN CORPUSCULAR VOLUME 92 fl (80-97); MONOCYTES % (AUTO) 9.7 % (3-13); RED BLOOD COUNT 3.34 10^6/uL (3.72-5.28); RED CELL DISTRIBUTION WIDTH 13.9 % (11.5-14.0); SEGMENTED NEUTROPHILS % (AUTO) 81.4 % (42-78); WHITE BLOOD COUNT 10.5 10^3/uL (4.0-10.5)
[2016-05-23 21:03] LABS: ALANINE AMINOTRANSFERASE 25 U/L (9-52); ALBUMIN 2.3 g/dL (3.5-5.0); ALKALINE PHOSPHATASE 54 U/L (38-126); ASPARTATE AMINO TRANSFERASE 25 U/L (14-36); BILIRUBIN,TOTAL 0.4 mg/dL (0.2-1.3); BLOOD UREA NITROGEN 5 mg/dL (7-20); CALCIUM 7.9 mg/dL (8.4-10.2); CREATININE RESULT 0.62 mg/dL (0.52-1.25); GLUCOSE 85 mg/dL (75-110)
[2016-05-23 21:18] LABS: CARBON DIOXIDE 25 mmol/L (22-30); CHLORIDE 102 mmol/L (98-107); POTASSIUM 4.7 mmol/L (3.6-5.0)
[2016-05-23 21:19] LABS: ANION GAP 5 (5-19); SODIUM 131.7 mmol/L (137-145)
[2016-05-23] MEDS: DONEPEZIL HCL 5 MG TABLET PO SCH (22:36)
[2016-05-24] MEDS: METRONIDAZOLE 500 MG/NS RTU 100 ML IV SCH ×5 (01:07→23:55)
[2016-05-24] MEDS: ALPRAZOLAM 0.5 MG TABLET PO SCH ×5 (01:09→23:56)
[2016-05-24 04:44] LABS: ABSOLUTE BASOPHILS # (AUTO) 0.1 10^3/uL (0.0-0.2); ABSOLUTE EOSINOPHILS # (AUTO) 0.2 10^3/uL (0.0-0.6); ABSOLUTE LYMPHOCYTES (AUTO) 0.7 10^3/uL (0.5-4.7); ABSOLUTE MONOCYTES (AUTO) 0.8 10^3/uL (0.1-1.4); ABSOLUTE NEUT (AUTO) 7.3 10^3/uL (1.7-8.2); EOSINOPHILS % (AUTO) 2.3 % (0-6); HEMATOCRIT 30.1 % (36.0-47.0); HEMOGLOBIN 10.1 g/dL (12.0-15.5); HGB HCT DIFFERENCE 0.2; LYMPHOCYTES % (AUTO) 7.6 % (13-45); MEAN CORPUSCULAR HEMOGLOBIN 30.5 pg (27.0-33.4); MEAN CORPUSCULAR HGB CONC 33.4 g/dL (32.0-36.0); MEAN CORPUSCULAR VOLUME 91 fl (80-97); MONOCYTES % (AUTO) 8.9 % (3-13); RED CELL DISTRIBUTION WIDTH 13.7 % (11.5-14.0); SEGMENTED NEUTROPHILS % (AUTO) 80.2 % (42-78); WHITE BLOOD COUNT 9.1 10^3/uL (4.0-10.5)
[2016-05-24 04:59] LABS: ALANINE AMINOTRANSFERASE 23 U/L (9-52); ALBUMIN 2.5 g/dL (3.5-5.0); ALKALINE PHOSPHATASE 54 U/L (38-126); ASPARTATE AMINO TRANSFERASE 22 U/L (14-36); BILIRUBIN,TOTAL 0.5 mg/dL (0.2-1.3); BLOOD UREA NITROGEN 5 mg/dL (7-20); CALCIUM 7.6 mg/dL (8.4-10.2); CHLORIDE 103 mmol/L (98-107); CREATININE RESULT 0.58 mg/dL (0.52-1.25); GLUCOSE 81 mg/dL (75-110); POTASSIUM 4.3 mmol/L (3.6-5.0); TOTAL PROTEIN 4.8 g/dL (6.3-8.2)
[2016-05-24 05:08] LABS: ANION GAP 5 (5-19); CARBON DIOXIDE 25 mmol/L (22-30); SODIUM 133.1 mmol/L (137-145)
[2016-05-24] MEDS: VENLAFAXINE HCL 37.5 MG CAP.SR.24H PO SCH (08:23)
[2016-05-24] MEDS: CYCLOSPORINE 0.05% OPH EMULSIO 0.4 ML DROPERETTE OU SCH ×2 (09:44→21:35)
[2016-05-24] MEDS: FOLIC ACID 1 MG TABLET PO SCH (09:45)
[2016-05-24] MEDS: LANSOPRAZOLE 30 MG TAB.RAP.DR PO SCH (09:45)
[2016-05-24] MEDS: TIOTROPIUM BROMIDE DPI 5 CAP/KIT (18 MCG/CAP) IH SCH (09:45)
[2016-05-24] MEDS: NORMAL SALINE 1000 ML 1,000 ML IV PRN (11:45)
[2016-05-24] MEDS: OXYCODONE HCL IR 5 MG TABLET PO PRN ×2 (12:27→18:41)
[2016-05-24] MEDS: AMLODIPINE BESYLATE 5 MG TABLET PO SCH (15:59)
--- NOTE | 2016-05-24 16:06 | PDOC PROGRESS REPORT ---
Subjective Progress Note for:: 05/23/16 Subjective:: The biggest challenge for this patient is nutrition, she is not eating. She is very nauseous yesterday, the Flagyl was changed to IV Physical Exam Vital Signs: Temp Pulse Resp BP Pulse Ox 97.9 F 91 17 108/57 L 94 05/24/16 15:29 05/24/16 15:29 05/24/16 15:29 05/24/16 15:29 05/24/16 15:29 Intake & Output 05/23/16 05/24/16 05/25/16 06:59 06:59 06:59 Intake Total 991 2201 996 Output Total 400 1750 Balance 591 451 996 General appearance: PRESENT: thin Eye exam: PRESENT: PERRLA Respiratory exam: PRESENT: rales Cardiovascular exam: PRESENT: +S1, +S2 GI/Abdominal exam: PRESENT: soft Results Laboratory Results: 05/24/16 04:21 05/24/16 04:21 05/23/16 05/23/16 05/23/16 18:40 18:40 20:41 WBC 10.5 RBC 3.34 L Hgb 10.3 L Hct 30.6 L MCV 92 MCH 30.8 MCHC 33.7 RDW 13.9 Plt Count 191 Seg Neutrophils % 81.4 H Lymphocytes % 6.5 L Monocytes % 9.7 Eosinophils % 1.9 Basophils % 0.5 Absolute Neutrophils 8.5 H Absolute Lymphocytes 0.7 Absolute Monocytes 1.0 Absolute Eosinophils 0.2 Absolute Basophils 0.0 Sodium Cancelled 131.7 L Potassium Cancelled 4.7 Chloride Cancelled 102 Carbon Dioxide Cancelled 25 Anion Gap Cancelled 5 BUN Cancelled 5 L Creatinine Cancelled 0.62 Est GFR ( Amer) Cancelled > 60 Est GFR (Non-Af Amer) Cancelled > 60 Glucose Cancelled 85 Calcium Cancelled 7.9 L Total Bilirubin Cancelled 0.4 AST Cancelled 25 ALT Cancelled 25 Alkaline Phosphatase Cancelled 54 Total Protein Cancelled 5.0 L Albumin Cancelled 2.3 L 05/24/16 05/24/16 04:21 04:21 WBC 9.1 RBC 3.30 L Hgb 10.1 L Hct 30.1 L MCV 91 MCH 30.5 MCHC 33.4 RDW 13.7 Plt Count 215 Seg Neutrophils % 80.2 H Lymphocytes % 7.6 L Monocytes % 8.9 Eosinophils % 2.3 Basophils % 1.0 Absolute Neutrophils 7.3 Absolute Lymphocytes 0.7 Absolute Monocytes 0.8 Absolute Eosinophils 0.2 Absolute Basophils 0.1 Sodium 133.1 L Potassium 4.3 Chloride 103 Carbon Dioxide 25 Anion Gap 5 BUN 5 L Creatinine 0.58 Est GFR ( Amer) > 60 Est GFR (Non-Af Amer) > 60 Glucose 81 Calcium 7.6 L Total Bilirubin 0.5 AST 22 ALT 23 Alkaline Phosphatase 54 Total Protein 4.8 L Albumin 2.5 L Assessment & Plan - Diagnosis (1) Hyponatremia Is this a current diagnosis for this admission?: Yes (2) Abdominal pain Qualifiers: Abdominal location: generalized Qualified Code(s): R10.84 - Generalized abdominal pain Is this a current diagnosis for this admission?: Yes (3) Vomiting Qualifiers: Vomiting type: unspecified Vomiting Intractability: intractable Nausea presence: with nausea Qualified Code(s): R11.2 - Nausea with vomiting, unspecified Is this a current diagnosis for this admission?: Yes (4) Undernutrition Is this a current diagnosis for this admission?: Yes
--- NOTE | 2016-05-24 16:51 | PDOC PROGRESS REPORT ---
Subjective Progress Note for:: 05/24/16 Subjective:: She just feels bad and very deconditioned, she may need physical therapy/ rehabilitation. She also had episode of diarrhea today Physical Exam Vital Signs: Temp Pulse Resp BP Pulse Ox 97.9 F 91 17 108/57 L 94 05/24/16 15:29 05/24/16 15:29 05/24/16 15:29 05/24/16 15:29 05/24/16 15:29 Intake & Output 05/23/16 05/24/16 05/25/16 06:59 06:59 06:59 Intake Total 991 2201 996 Output Total 400 1750 Balance 591 451 996 General appearance: PRESENT: no acute distress Eye exam: PRESENT: PERRLA Respiratory exam: PRESENT: crackles Cardiovascular exam: PRESENT: +S1, +S2 GI/Abdominal exam: PRESENT: soft Neurological exam: PRESENT: alert Results Laboratory Results: 05/24/16 04:21 05/24/16 04:21 05/23/16 05/23/16 05/23/16 18:40 18:40 20:41 WBC 10.5 RBC 3.34 L Hgb 10.3 L Hct 30.6 L MCV 92 MCH 30.8 MCHC 33.7 RDW 13.9 Plt Count 191 Seg Neutrophils % 81.4 H Lymphocytes % 6.5 L Monocytes % 9.7 Eosinophils % 1.9 Basophils % 0.5 Absolute Neutrophils 8.5 H Absolute Lymphocytes 0.7 Absolute Monocytes 1.0 Absolute Eosinophils 0.2 Absolute Basophils 0.0 Sodium Cancelled 131.7 L Potassium Cancelled 4.7 Chloride Cancelled 102 Carbon Dioxide Cancelled 25 Anion Gap Cancelled 5 BUN Cancelled 5 L Creatinine Cancelled 0.62 Est GFR ( Amer) Cancelled > 60 Est GFR (Non-Af Amer) Cancelled > 60 Glucose Cancelled 85 Calcium Cancelled 7.9 L Total Bilirubin Cancelled 0.4 AST Cancelled 25 ALT Cancelled 25 Alkaline Phosphatase Cancelled 54 Total Protein Cancelled 5.0 L Albumin Cancelled 2.3 L 05/24/16 05/24/16 04:21 04:21 WBC 9.1 RBC 3.30 L Hgb 10.1 L Hct 30.1 L MCV 91 MCH 30.5 MCHC 33.4 RDW 13.7 Plt Count 215 Seg Neutrophils % 80.2 H Lymphocytes % 7.6 L Monocytes % 8.9 Eosinophils % 2.3 Basophils % 1.0 Absolute Neutrophils 7.3 Absolute Lymphocytes 0.7 Absolute Monocytes 0.8 Absolute Eosinophils 0.2 Absolute Basophils 0.1 Sodium 133.1 L Potassium 4.3 Chloride 103 Carbon Dioxide 25 Anion Gap 5 BUN 5 L Creatinine 0.58 Est GFR ( Amer) > 60 Est GFR (Non-Af Amer) > 60 Glucose 81 Calcium 7.6 L Total Bilirubin 0.5 AST 22 ALT 23 Alkaline Phosphatase 54 Total Protein 4.8 L Albumin 2.5 L Assessment & Plan - Diagnosis (1) Hyponatremia Is this a current diagnosis for this admission?: Yes (2) Abdominal pain Qualifiers: Abdominal location: generalized Qualified Code(s): R10.84 - Generalized abdominal pain Is this a current diagnosis for this admission?: Yes (3) Vomiting Qualifiers: Vomiting type: unspecified Vomiting Intractability: intractable Nausea presence: with nausea Qualified Code(s): R11.2 - Nausea with vomiting, unspecified Is this a current diagnosis for this admission?: Yes (4) Undernutrition Is this a current diagnosis for this admission?: YesPlan: Consultation will be requested from discharge planning to arrange for rehabilitation
[2016-05-24] MEDS: DONEPEZIL HCL 5 MG TABLET PO SCH (21:34)
[2016-05-25] MEDS: NORMAL SALINE 1000 ML 1,000 ML IV PRN ×2 (05:22→22:55)
[2016-05-25] MEDS: ALPRAZOLAM 0.5 MG TABLET PO SCH ×3 (05:22→18:46)
[2016-05-25] MEDS: METRONIDAZOLE 500 MG/NS RTU 100 ML IV SCH ×3 (05:22→18:46)
[2016-05-25] MEDS: VENLAFAXINE HCL 37.5 MG CAP.SR.24H PO SCH (08:38)
[2016-05-25] MEDS: AMLODIPINE BESYLATE 5 MG TABLET PO SCH (10:29)
[2016-05-25] MEDS: CYCLOSPORINE 0.05% OPH EMULSIO 0.4 ML DROPERETTE OU SCH ×2 (10:30→22:55)
[2016-05-25] MEDS: TIOTROPIUM BROMIDE DPI 5 CAP/KIT (18 MCG/CAP) IH SCH (10:30)
[2016-05-25] MEDS: FOLIC ACID 1 MG TABLET PO SCH (10:30)
[2016-05-25] MEDS: LANSOPRAZOLE 30 MG TAB.RAP.DR PO SCH (10:30)
[2016-05-25] MEDS: OXYCODONE HCL IR 5 MG TABLET PO PRN (15:47)
--- NOTE | 2016-05-25 17:32 | PDOC PROGRESS REPORT ---
Subjective Progress Note for:: 05/25/16 Subjective:: Patient is seen by the bedside. There is no new complaint. The plan is to get her transferred to a intermediate for rehabilitation Physical Exam Vital Signs: Temp Pulse Resp BP Pulse Ox 98.3 F 92 16 120/74 95 05/25/16 15:59 05/25/16 15:59 05/25/16 15:59 05/25/16 15:59 05/25/16 15:59 Intake & Output 05/24/16 05/25/16 05/26/16 06:59 06:59 06:59 Intake Total 2201 2323 400 Output Total 1750 600 800 Balance 451 1723 -400 General appearance: PRESENT: no acute distress Eye exam: PRESENT: PERRLA Respiratory exam: PRESENT: clear to auscultation bro Cardiovascular exam: PRESENT: +S1, +S2 GI/Abdominal exam: PRESENT: soft Neurological exam: PRESENT: alert Results Laboratory Results: 05/24/16 04:21 05/24/16 04:21 Assessment & Plan - Diagnosis (1) Hyponatremia Is this a current diagnosis for this admission?: Yes (2) Abdominal pain Qualifiers: Abdominal location: generalized Qualified Code(s): R10.84 - Generalized abdominal pain Is this a current diagnosis for this admission?: Yes (3) Vomiting Qualifiers: Vomiting type: unspecified Vomiting Intractability: intractable Nausea presence: with nausea Qualified Code(s): R11.2 - Nausea with vomiting, unspecified Is this a current diagnosis for this admission?: Yes (4) Undernutrition Is this a current diagnosis for this admission?: Yes
[2016-05-25] MEDS: DRONABINOL 2.5 MG CAPSULE PO SCH (18:46)
[2016-05-25] MEDS: DONEPEZIL HCL 5 MG TABLET PO SCH (22:55)
[2016-05-26] MEDS: ALPRAZOLAM 0.5 MG TABLET PO SCH ×4 (00:07→18:15)
[2016-05-26] MEDS: METRONIDAZOLE 500 MG/NS RTU 100 ML IV SCH ×4 (00:07→18:16)
[2016-05-26] MEDS: LANSOPRAZOLE 30 MG TAB.RAP.DR PO SCH (10:02)
[2016-05-26] MEDS: TIOTROPIUM BROMIDE DPI 5 CAP/KIT (18 MCG/CAP) IH SCH (10:02)
[2016-05-26] MEDS: AMLODIPINE BESYLATE 5 MG TABLET PO SCH (10:03)
[2016-05-26] MEDS: FOLIC ACID 1 MG TABLET PO SCH (10:03)
[2016-05-26] MEDS: DRONABINOL 2.5 MG CAPSULE PO SCH ×2 (10:03→18:15)
[2016-05-26] MEDS: VENLAFAXINE HCL 37.5 MG CAP.SR.24H PO SCH (10:04)
[2016-05-26] MEDS: CYCLOSPORINE 0.05% OPH EMULSIO 0.4 ML DROPERETTE OU SCH ×2 (10:04→21:42)
[2016-05-26] MEDS: OXYCODONE HCL IR 5 MG TABLET PO PRN ×2 (10:06→18:24)
--- NOTE | 2016-05-26 20:41 | PDOC PROGRESS REPORT ---
Subjective Progress Note for:: 06/02/16 Subjective:: Patient's condition is poor. She is extremely deconditioned. She we need rehabilitation. Discharge planning is working on that but because of the nature of her medical insurance may be a delay in getting authorization from the insurance. The food intake is still minimal Physical Exam Vital Signs: Temp Pulse Resp BP Pulse Ox 97.9 F 93 16 122/72 94 05/26/16 16:39 05/26/16 16:39 05/26/16 16:39 05/26/16 16:39 05/26/16 16:39 Intake & Output 05/25/16 05/26/16 05/27/16 06:59 06:59 06:59 Intake Total 2323 2848 1380 Output Total 600 1700 Balance 1723 1148 1380 General appearance: PRESENT: mild distress Eye exam: PRESENT: PERRLA Respiratory exam: PRESENT: decreased breath sounds Cardiovascular exam: PRESENT: +S1, +S2 Results Laboratory Results: 05/24/16 04:21 05/24/16 04:21 Assessment & Plan - Diagnosis (1) Hyponatremia Is this a current diagnosis for this admission?: Yes (2) Abdominal pain Qualifiers: Abdominal location: generalized Qualified Code(s): R10.84 - Generalized abdominal pain Is this a current diagnosis for this admission?: Yes (3) Vomiting Qualifiers: Vomiting type: unspecified Vomiting Intractability: intractable Nausea presence: with nausea Qualified Code(s): R11.2 - Nausea with vomiting, unspecified Is this a current diagnosis for this admission?: Yes (4) Undernutrition Is this a current diagnosis for this admission?: Yes
[2016-05-26] MEDS: DONEPEZIL HCL 5 MG TABLET PO SCH (21:42)
[2016-05-27] MEDS: ALPRAZOLAM 0.5 MG TABLET PO SCH ×5 (00:06→23:23)
[2016-05-27] MEDS: METRONIDAZOLE 500 MG/NS RTU 100 ML IV SCH ×4 (00:07→17:33)
[2016-05-27] MEDS: FOLIC ACID 1 MG TABLET PO SCH (10:22)
[2016-05-27] MEDS: AMLODIPINE BESYLATE 5 MG TABLET PO SCH (10:23)
[2016-05-27] MEDS: DRONABINOL 2.5 MG CAPSULE PO SCH ×2 (10:23→17:32)
[2016-05-27] MEDS: LANSOPRAZOLE 30 MG TAB.RAP.DR PO SCH (10:23)
[2016-05-27] MEDS: OXYCODONE HCL IR 5 MG TABLET PO PRN ×2 (10:23→17:32)
[2016-05-27] MEDS: CYCLOSPORINE 0.05% OPH EMULSIO 0.4 ML DROPERETTE OU SCH ×2 (10:24→21:59)
[2016-05-27] MEDS: VENLAFAXINE HCL 37.5 MG CAP.SR.24H PO SCH (10:24)
[2016-05-27] MEDS: TIOTROPIUM BROMIDE DPI 5 CAP/KIT (18 MCG/CAP) IH SCH (10:25)
--- NOTE | 2016-05-27 18:29 | PDOC PROGRESS REPORT ---
Subjective Progress Note for:: 05/27/16 Subjective:: She was seen by the bedside. It seems that the Flagyl was part of her problem, she is not on by mouth or IV Flagyl and she said she feels better, and she has less GI symptoms though she remained extremity deconditioned and and the plan is to transfer to assisted for rehabilitation. Discharge planning is working on that Physical Exam Vital Signs: Temp Pulse Resp BP Pulse Ox 97.8 F 94 17 120/68 97 05/27/16 16:13 05/27/16 16:13 05/27/16 16:13 05/27/16 16:13 05/27/16 16:13 Intake & Output 05/26/16 05/27/16 05/28/16 06:59 06:59 06:59 Intake Total 2848 2967 Output Total 1700 Balance 1148 2967 General appearance: PRESENT: no acute distress Eye exam: PRESENT: PERRLA Respiratory exam: PRESENT: clear to auscultation bro Cardiovascular exam: PRESENT: +S1, +S2 GI/Abdominal exam: PRESENT: soft Neurological exam: PRESENT: alert, CN II-XII grossly intact Results Laboratory Results: 05/24/16 04:21 05/24/16 04:21 Assessment & Plan - Diagnosis (1) Hyponatremia Is this a current diagnosis for this admission?: Yes (2) Abdominal pain Qualifiers: Abdominal location: generalized Qualified Code(s): R10.84 - Generalized abdominal pain Is this a current diagnosis for this admission?: Yes (3) Vomiting Qualifiers: Vomiting type: unspecified Vomiting Intractability: intractable Nausea presence: with nausea Qualified Code(s): R11.2 - Nausea with vomiting, unspecified Is this a current diagnosis for this admission?: Yes (4) Undernutrition Is this a current diagnosis for this admission?: Yes
[2016-05-27] MEDS: DONEPEZIL HCL 5 MG TABLET PO SCH (21:59)
[2016-05-28] MEDS: ALPRAZOLAM 0.5 MG TABLET PO SCH ×4 (05:40→23:08)
[2016-05-28] MEDS: TIOTROPIUM BROMIDE DPI 5 CAP/KIT (18 MCG/CAP) IH SCH (09:13)
[2016-05-28] MEDS: VENLAFAXINE HCL 37.5 MG CAP.SR.24H PO SCH (09:15)
[2016-05-28] MEDS: LANSOPRAZOLE 30 MG TAB.RAP.DR PO SCH (09:15)
[2016-05-28] MEDS: OXYCODONE HCL IR 5 MG TABLET PO PRN ×2 (09:15→15:25)
[2016-05-28] MEDS: AMLODIPINE BESYLATE 5 MG TABLET PO SCH (09:16)
[2016-05-28] MEDS: DRONABINOL 2.5 MG CAPSULE PO SCH ×2 (09:16→17:45)
[2016-05-28] MEDS: CYCLOSPORINE 0.05% OPH EMULSIO 0.4 ML DROPERETTE OU SCH ×2 (09:16→21:33)
[2016-05-28] MEDS: FOLIC ACID 1 MG TABLET PO SCH (09:16)
--- NOTE | 2016-05-28 16:55 | PDOC PROGRESS REPORT ---
Subjective Subjective:: She was seen by the bedside. It seems that the Flagyl was part of her problem, she is not on by mouth or IV Flagyl and she said she feels better, and she has less GI symptoms though she remained extremity deconditioned and and the plan is to transfer to custodial for rehabilitation. Discharge planning is working on that Physical Exam Vital Signs: Temp Pulse Resp BP Pulse Ox 97.7 F 81 16 116/60 98 05/28/16 12:05 05/28/16 14:00 05/28/16 12:05 05/28/16 12:05 05/28/16 12:05 Intake & Output 05/27/16 05/28/16 05/29/16 06:59 06:59 06:59 Intake Total 2967 930 Output Total 700 Balance 2967 230 General appearance: PRESENT: no acute distress Eye exam: PRESENT: PERRLA Respiratory exam: PRESENT: clear to auscultation bro Cardiovascular exam: PRESENT: +S1, +S2 Results Laboratory Results: 05/24/16 04:21 05/24/16 04:21 Assessment & Plan - Diagnosis (1) Hyponatremia Is this a current diagnosis for this admission?: Yes (2) Abdominal pain Qualifiers: Abdominal location: generalized Qualified Code(s): R10.84 - Generalized abdominal pain Is this a current diagnosis for this admission?: Yes (3) Vomiting Qualifiers: Vomiting type: unspecified Vomiting Intractability: intractable Nausea presence: with nausea Qualified Code(s): R11.2 - Nausea with vomiting, unspecified Is this a current diagnosis for this admission?: Yes (4) Undernutrition Is this a current diagnosis for this admission?: Yes
[2016-05-28] MEDS: DONEPEZIL HCL 5 MG TABLET PO SCH (21:31)
[2016-05-29] MEDS: OXYCODONE HCL IR 5 MG TABLET PO PRN ×4 (02:59→22:10)
[2016-05-29] MEDS: ALPRAZOLAM 0.5 MG TABLET PO SCH ×4 (05:49→23:53)
[2016-05-29] MEDS: FOLIC ACID 1 MG TABLET PO SCH (10:00)
[2016-05-29] MEDS: AMLODIPINE BESYLATE 5 MG TABLET PO SCH (10:00)
[2016-05-29] MEDS: DRONABINOL 2.5 MG CAPSULE PO SCH ×2 (10:00→17:20)
[2016-05-29] MEDS: CYCLOSPORINE 0.05% OPH EMULSIO 0.4 ML DROPERETTE OU SCH ×2 (10:00→22:10)
[2016-05-29] MEDS: VENLAFAXINE HCL 37.5 MG CAP.SR.24H PO SCH (10:01)
[2016-05-29] MEDS: TIOTROPIUM BROMIDE DPI 5 CAP/KIT (18 MCG/CAP) IH SCH (10:01)
[2016-05-29] MEDS: LANSOPRAZOLE 30 MG TAB.RAP.DR PO SCH (10:01)
--- NOTE | 2016-05-29 19:51 | PDOC TRANSFER SUMMARY ---
General - Admit/Disc Date/PCP Admission Date/Primary Care Provider: 05/22/16 17:58 MARIO TO MD Discharge Date: 05/30/16 - Discharge Diagnosis (1) Hyponatremia Is this a current diagnosis for this admission?: Yes (2) Abdominal pain Is this a current diagnosis for this admission?: Yes (3) Vomiting Is this a current diagnosis for this admission?: Yes (4) Undernutrition Is this a current diagnosis for this admission?: Yes (5) Chronic pain syndrome Is this a current diagnosis for this admission?: Yes (6) History of Clostridium difficile colitis Is this a current diagnosis for this admission?: Yes (7) COPD (chronic obstructive pulmonary disease) Is this a current diagnosis for this admission?: Yes - Additional Information Resuscitation Status: Full Code Home Medications: Lisinopril 2.5 mg PO DAILY 07/07/13 Alprazolam 0.5 mg PO Q6 04/24/16 Amlodipine Besylate 5 mg PO DAILY 04/24/16 Cyclosporine 0.05% Oph Emulsio [Restasis 0.05% Oph Emulsion Pf 0.4 ml] 1 drop OU Q12 04/24/16 Diclofenac Sodium 4 gm TOP QID 04/24/16 Doxepin HCl [Silenor] 6 mg PO QHS 04/24/16 Folic Acid 1 mg PO DAILY 04/24/16 Memantine HCl [Namenda Xr] 28 mg PO DAILY 04/24/16 Pantoprazole Sodium [Protonix] 40 mg PO DAILY 04/24/16 Tiotropium [place] [Spiriva Handihaler 5 Cap/Kit (18 Mcg/Cap)] 1 puff IH DAILY 04/24/16 Venlafaxine HCl ER [Effexor Xr 37.5 mg Cap.sr] 37.5 mg PO [id number] 04/24/16 Donepezil HCl [Aricept 5 mg Tablet] 10 mg PO QHS #0 05/29/16 Dronabinol [Marinol 2.5 mg Capsule] 5 mg PO BID #60 capsule 05/29/16 Oxycodone HCl 10 mg PO Q6 #120 05/29/16 History of Present Illness Admission Date/PCP: 05/22/16 17:58 MARIO TO MD History of Present Illness: ANCA TOSCANO is a 76 year old female, she has chronic multiple comorbid conditions including COPD, CVA, recurrent C. difficile colitis infection. She is presently on by mouth Flagyl. She came to the office today because of abdominal pain, inability to keep food down, concern for dehydration, lack of energy vomiting, diarrhea is improved. She was admitted directly from the office into the hospital for evaluation and observation. The initial blood work revealed hyponatremia with serum sodium of 126 in the setting of hypovolemia. Hospital Course Hospital Course: Patient was admitted because of persistent vomiting, abdominal pain, with dehydration she is not able to keep any food down. She has a history of recurrent Clostridium difficile colitis and she was on by mouth Flagyl. She was seen by GI physician, Dr. Nichols and she had EGD done on this admission and it showed gastritis that was hypovolemic hyponatremia, this was directed with normal saline. She is extremely deconditioned. It was ultimately felt that the Flagyl was part of the problem and it was the reason for the nausea, she was taken off the Flagyl and the GI symptoms improved, especially vomiting. The by mouth intake is still very minimal and she was treated with Marinol to help stimulate appetite. Physical Exam Vital Signs: Temp Pulse Resp BP Pulse Ox 98.1 F 95 16 124/71 94 05/29/16 15:54 05/29/16 19:00 05/29/16 15:54 05/29/16 15:54 05/29/16 15:54 Intake & Output 05/28/16 05/29/16 05/30/16 06:59 06:59 06:59 Intake Total 930 1425 0 Output Total 700 1025 Balance 230 400 0 Weight 40.6 kg General appearance: PRESENT: no acute distress, thin Respiratory exam: PRESENT: clear to auscultation bro Cardiovascular exam: PRESENT: +S1, +S2 GI/Abdominal exam: PRESENT: soft Neurological exam: PRESENT: alert, CN II-XII grossly intact Results Laboratory Results: 05/24/16 04:21 05/24/16 04:21
[2016-05-29] MEDS: DONEPEZIL HCL 5 MG TABLET PO SCH (22:10)
[2016-05-30] MEDS: MAG HYDROX/AL HYDROX/SIMETH SUSP 30 ML UDCUP PO PRN (02:54)
[2016-05-30] MEDS: ALPRAZOLAM 0.5 MG TABLET PO SCH ×2 (06:58→11:41)
[2016-05-30] MEDS: OXYCODONE HCL IR 5 MG TABLET PO PRN ×2 (06:58→12:40)
[2016-05-30] MEDS: VENLAFAXINE HCL 37.5 MG CAP.SR.24H PO SCH (08:20)
[2016-05-30] MEDS: DRONABINOL 2.5 MG CAPSULE PO SCH (09:56)
[2016-05-30] MEDS: AMLODIPINE BESYLATE 5 MG TABLET PO SCH (09:56)
[2016-05-30] MEDS: TIOTROPIUM BROMIDE DPI 5 CAP/KIT (18 MCG/CAP) IH SCH (09:57)
[2016-05-30] MEDS: FOLIC ACID 1 MG TABLET PO SCH (09:57)
[2016-05-30] MEDS: LANSOPRAZOLE 30 MG TAB.RAP.DR PO SCH (09:57)
[2016-05-30] MEDS: CYCLOSPORINE 0.05% OPH EMULSIO 0.4 ML DROPERETTE OU SCH (09:58)
[2016-05-30 14:06] VITALS: BP 114/63
== END 2016-05-30 15:08 | DRG 641 ==
LOC: UNDOADMOB 12:43 → EH 12:43 → 5 12:45 → OBSVTOIN 05-22 17:58
PROVIDERS: ADMIT Internal Medicine; ATTEND Internal Medicine
PROC: 0DB68ZX Excision of Stomach, Via Natural or Artificial Opening Endoscopic, Diagnostic (ICD-10-PCS; principal; 2016-05-19)
DX: E87.1 Hypo-osmolality and hyponatremia (principal); E46 Unspecified protein-calorie malnutrition; Z68.1 Body mass index [BMI] 19.9 or less, adult; K29.70 Gastritis, unspecified, without bleeding; J44.9 Chronic obstructive pulmonary disease, unspecified; E86.0 Dehydration; E86.1 Hypovolemia; E78.5 Hyperlipidemia, unspecified; I10 Essential (primary) hypertension; K21.9 Gastro-esophageal reflux disease without esophagitis; J45.909 Unspecified asthma, uncomplicated; F32.9 Major depressive disorder, single episode, unspecified; Z86.73 Personal history of transient ischemic attack (TIA), and cerebral infarction without residual deficits; Z87.891 Personal history of nicotine dependence
CPT/HCPCS: 36415; 43239; 80048; 80053; 80076; 81001; 83930; 83935; 84300; 85025; 85027; 87086; 88305; 88342; G0378; G0379; G8978-GP; G8979-GP; J0171; J1610; J2250; J2310; J2550; J3010; J3490; J7030; Q0167

== ENCOUNTER 2016-06-19 16:11 | Emergency (ER) | payer MEDICARE ==
--- NOTE | 2016-06-19 16:23 | ER Document Report ---
ED Medical Screen (RME) - General Stated Complaint: BLOOD PRESSURE PROBLEMS Time seen by provider: 16:21 Mode of Arrival: Wheelchair Information source: Patient Notes: 76-year-old male presents to ED for low blood pressure at home. Her states they have a home health nurse and she checked her blood pressure standing sitting and lying and it was low while 3 times and sent him to the emergency room. Home health nurse states that she looks dehydrated and has not been eating or drinking. States she was here recently and sent to rehabilitation for seizures and dehydration and then Thursday she went home. Has not been eating or drinking since. I have greeted and performed a rapid initial assessment of this patient. A comprehensive ED assessment and evaluation of the patient, analysis of test results and completion of medical decision making process will be conducted by an additional ED providers. TRAVEL OUTSIDE OF THE [place] IN LAST 30 DAYS: No - Related Data Allergies/Adverse Reactions: levofloxacin [From Levaquin] Allergy (Unknown, Verified 07/07/13 17:41) propoxyphene napsylate [From Darvocet-N 100] Allergy (Verified 07/07/13 17:41) hydromorphone HCl [From Dilaudid] Adverse Reaction (Verified 03/09/15 21:33) morphine [Morphine] Adverse Reaction (Verified 07/07/13 17:41) VOMITING Past Medical History - Social History Family history: Reviewed & Not Pertinent - Past Medical History Cardiac Medical History: Reports: Hx Hypercholesterolemia, Hx Hypertension Pulmonary Medical History: Reports: Hx Asthma, Hx Bronchitis, Hx COPD, Hx Pneumonia, Hx Tuberculosis Neurological Medical History: Reports: Hx Cerebrovascular Accident. Denies: Hx Seizures GI Medical History: Reports: Hx Diverticulitis, Hx Gastroesophageal Reflux Disease, Hx Ulcer Musculoskeltal Medical History: Reports Hx Arthritis Psychiatric Medical History: Reports: Hx Depression Past Surgical History: Reports: Hx Appendectomy, Hx Bowel Surgery, Hx Carotid Endarterectomy - Left side, Hx Cholecystectomy, Hx Hysterectomy, Hx Vascular Surgery - left carotid endarectomy - Immunizations Immunizations up to date: Yes Hx Diphtheria, Pertussis, Tetanus Vaccination: Yes Physical Exam - Vital signs Vitals: Temp Pulse Resp BP Pulse Ox 97.6 F 96 14 103/70 96 06/19/16 16:14 06/19/16 16:14 06/19/16 16:14 06/19/16 16:14 06/19/16 16:14 Course - Vital Signs Vital signs: Temp Pulse Resp BP Pulse Ox 97.6 F 96 14 103/70 96 06/19/16 16:14 06/19/16 16:14 06/19/16 16:14 06/19/16 16:14 06/19/16 16:14
[2016-06-19] MEDS ORDERED: NORMAL SALINE 1000 ML 1,000 ML IV ONE (16:24)
[2016-06-19] MEDS ORDERED: ONDANSETRON 4 MG TAB.RAPDIS PO ONE (16:25)
[2016-06-19 17:08] LABS: ABSOLUTE BASOPHILS # (AUTO) 0.2 10^3/uL (0.0-0.2); ABSOLUTE EOSINOPHILS # (AUTO) 0.4 10^3/uL (0.0-0.6); ABSOLUTE LYMPHOCYTES (AUTO) 1.5 10^3/uL (0.5-4.7); ABSOLUTE MONOCYTES (AUTO) 0.8 10^3/uL (0.1-1.4); ABSOLUTE NEUT (AUTO) 5.1 10^3/uL (1.7-8.2); BASOPHILS % (AUTO) 2.2 % (0-2); EOSINOPHILS % (AUTO) 4.4 % (0-6); HEMOGLOBIN 12.3 g/dL (12.0-15.5); HGB HCT DIFFERENCE -0.1; LYMPHOCYTES % (AUTO) 18.7 % (13-45); MEAN CORPUSCULAR HEMOGLOBIN 30.5 pg (27.0-33.4); MEAN CORPUSCULAR HGB CONC 33.3 g/dL (32.0-36.0); MEAN CORPUSCULAR VOLUME 91 fl (80-97); MONOCYTES % (AUTO) 10.2 % (3-13); RED BLOOD COUNT 4.05 10^6/uL (3.72-5.28); RED CELL DISTRIBUTION WIDTH 13.5 % (11.5-14.0); SEGMENTED NEUTROPHILS % (AUTO) 64.5 % (42-78)
[2016-06-19 17:30] LABS: ALANINE AMINOTRANSFERASE 30 U/L (9-52); ALBUMIN 3.5 g/dL (3.5-5.0); ALKALINE PHOSPHATASE 84 U/L (38-126); ANION GAP 9 (5-19); ASPARTATE AMINO TRANSFERASE 49 U/L (14-36); BILIRUBIN,TOTAL 0.6 mg/dL (0.2-1.3); BLOOD UREA NITROGEN 10 mg/dL (7-20); CALCIUM 8.7 mg/dL (8.4-10.2); CARBON DIOXIDE 25 mmol/L (22-30); CHLORIDE 95 mmol/L (98-107); CREATININE RESULT 0.85 mg/dL (0.52-1.25); GLUCOSE 83 mg/dL (75-110); POTASSIUM 4.6 mmol/L (3.6-5.0); SODIUM 129.2 mmol/L (137-145); TOTAL PROTEIN 6.2 g/dL (6.3-8.2)
--- NOTE | 2016-06-19 18:24 | ER Document Report ---
ED General - General Chief Complaint: Blood Pressure Problem Stated Complaint: BLOOD PRESSURE PROBLEMS Time seen by provider: 17:30 Mode of Arrival: Wheelchair Information source: Patient, Relative Notes: 76-year-old female discharge from rehabilitation 4 days ago after a hospitalization for hyponatremia decreased appetite and weakness who was found by home health today to have "low" blood pressure. Family describes what sounds like orthostatic vital signs being checked but they were not told what the number for her blood pressure actually was. The patient denies any syncope but says she has been feeling weak ever since her last admission to the hospital and doesn't believe she got any better at rehabilitation and is continuing to be weak now at home and minimally ambulatory. She reports very poor appetite though she is not sure about how much weight she might of loss. She reports no true nausea but simply does not want to eat. Her only physical complaint at the moment is that her hands and feet are cold. Family at bedside and confirms above history. Patient denies fever, chills, cough, shortness of breath, vomiting, diarrhea, hematemesis, melena, or dysuria. Patient had a prior admission with C. difficile colitis but she says she has no diuretics similar to that now. Physical Exam: General: Alert, appears uncomfortable but not toxic HEENT: Normocephalic. Atraumatic. PERRLA. Extraocular movements intact. Oropharynx I'm extent membranes Neck: Supple. Non-tender. No JVD Respiratory: No respiratory distress. Clear and equal breath sounds bilaterally. Cardiovascular: Regular rate and rhythm. Abdominal: Normal Inspection. Soft, non-tender. No distension. Normal Bowel Sounds. Back: Non-tender. No deformity or step off. Extremities are all warm. She has no gross deformity to any extremity and good range of motion to all joints. The tremors have brisk capillary refill no Homans sign bilaterally no lower extremity edema 1+ radial and dorsalis pedis pulses Neurological: Speech clear mentation normal records associate strength 4-5 equal both upper extremities motor function 4-5 equal both lower extremities Psychological: Normal affect. Normal Mood. Skin: Warm. Dry. Normal color.m TRAVEL OUTSIDE OF THE [place] IN LAST 30 DAYS: No - Related Data Allergies/Adverse Reactions: levofloxacin [From Levaquin] Allergy (Unknown, Verified 06/19/16 16:21) propoxyphene napsylate [From Darvocet-N 100] Allergy (Verified 06/19/16 16:21) hydromorphone HCl [From Dilaudid] Adverse Reaction (Verified 06/19/16 16:21) morphine [Morphine] Adverse Reaction (Verified 06/19/16 16:21) VOMITING Past Medical History - General Information source: Patient - Social History Smoking Status: Former Smoker Chew tobacco use (# tins/day): No Frequency of alcohol use: None Drug Abuse: None Family History: Reviewed & Not Pertinent Patient has suicidal ideation: No Patient has homicidal ideation: No - Past Medical History Cardiac Medical History: Reports: Hx Hypercholesterolemia, Hx Hypertension, Other - Patient has been told she has an abdominal aortic aneurysm but cannot have surgery. Due to Her underlying comorbidities Pulmonary Medical History: Reports: Hx Asthma, Hx Bronchitis, Hx COPD, Hx Pneumonia, Hx Tuberculosis Neurological Medical History: Reports: Hx Cerebrovascular Accident. Denies: Hx Seizures Renal/ Medical History: Denies: Hx Peritoneal Dialysis GI Medical History: Reports: Hx Diverticulitis, Hx Gastroesophageal Reflux Disease, Hx Ulcer Musculoskeltal Medical History: Reports Hx Arthritis Psychiatric Medical History: Reports: Hx Depression Past Surgical History: Reports: Hx Appendectomy, Hx Bowel Surgery, Hx Carotid Endarterectomy - Left side, Hx Cholecystectomy, Hx Hysterectomy, Hx Vascular Surgery - left carotid endarectomy - Immunizations Immunizations up to date: Yes Hx Diphtheria, Pertussis, Tetanus Vaccination: Yes Hx Pneumococcal Vaccination: 06/26/11 Review of Systems - Review of Systems Constitutional: Malaise, Weakness. denies: Chills, Fever EENT: denies: Ear pain, Throat pain Cardiovascular: denies: Chest pain, Dyspnea, Syncope Respiratory: denies: Cough, Short of breath Gastrointestinal: denies: Abdominal pain, Diarrhea, Nausea, Vomiting, Blood in vomit, Black stools, Rectal bleeding Genitourinary: denies: Burning, Dysuria Female Genitourinary: Post menopausal Musculoskeletal: denies: Back pain, Leg swelling Skin: denies: Rash Hematologic/Lymphatic: denies: Swollen glands Neurological/Psychological: denies: Numbness Physical Exam - Vital signs Vitals: Temp Pulse Resp BP Pulse Ox 97.6 F 96 14 103/70 96 06/19/16 16:14 06/19/16 16:14 06/19/16 16:14 06/19/16 16:14 06/19/16 16:14 Course - Re-evaluation Re-evalutation: 06/19/16 20:59 Patient reports feeling better with IV fluids. I had extensive discussions with patient and family regarding how she is doing at home. The patient doesn' t wish treatment at the hospital and family doesn't want her to Hospital either they're concerned about her poor appetite. They report that she was taking Marinol when she was in rehabilitation but that was not prescribed at her discharge. Going to prescribe scheduled Marinol and Zofran as needed and attempt to improve her appetite have her follow with her physician Dr. To next week for recheck he clinically is not dehydrated and has had a normal blood pressure during her stay here has no evidence for UTI, pneumonia, or other infection requiring admission - Vital Signs Vital signs: Temp Pulse Resp BP Pulse Ox 97.6 F 96 14 103/70 96 06/19/16 16:14 06/19/16 16:14 06/19/16 16:14 06/19/16 16:14 06/19/16 16:14 - Laboratory Result Diagrams: 06/19/16 16:35 06/19/16 16:35 Laboratory results interpreted by me: 06/19/16 06/19/16 16:35 16:35 Basophils % 2.2 H Sodium 129.2 L Chloride 95 L AST 49 H Total Protein 6.2 L - Diagnostic Test Radiology reviewed: Image reviewed, Reports reviewed Discharge - Discharge Clinical Impression: Anorexia, Orthostasis Condition: Stable Disposition: HOME, SELF-CARE Additional Instructions: It is important for you to eat as much as possible to regain you strength. You have been prescribed Marinol which should help with your appetite. You have also been prescribed Zofran which may help with nausea but you only need to take that if you feel nauseated. Prescriptions: Dronabinol [Marinol 2.5 mg Capsule] 2.5 mg PO BID #60 capsule Ondansetron [Zofran Odt 4 mg Tablet] 1 tab PO Q6H PRN #10 tab.rapdis PRN Reason: For Nausea/Vomiting Referrals: MARIO TO MD [Primary Care Provider] - Follow up in 1 week
[2016-06-19 20:08] LABS: APPEARANCE,URINE CLEAR; BILIRUBIN,URINE NEGATIVE (NEGATIVE); GLUCOSE, URINE NEGATIVE (NEGATIVE); KETONES,URINE NEGATIVE (NEGATIVE); LEUKOCYTE ESTERASE,URINE NEGATIVE (NEGATIVE); NITRITE,URINE NEGATIVE (NEGATIVE); PROTEIN,URINE NEGATIVE (NEGATIVE); URINE SPECIFIC GRAVITY 1.003; UROBILINOGEN,URINE NEGATIVE mg/dL (<2.0)
[2016-06-19 22:36] VITALS: BP 103/48
== END 2016-06-19 21:59 | disposition home or self-care (01) ==
LOC: ER 16:11
DX: R63.0 Anorexia (principal); I95.1 Orthostatic hypotension; R53.1 Weakness; E78.00 Pure hypercholesterolemia, unspecified; I10 Essential (primary) hypertension; J44.9 Chronic obstructive pulmonary disease, unspecified; J45.909 Unspecified asthma, uncomplicated; K21.9 Gastro-esophageal reflux disease without esophagitis; Z87.891 Personal history of nicotine dependence; Z88.6 Allergy status to analgesic agent; Z86.73 Personal history of transient ischemic attack (TIA), and cerebral infarction without residual deficits; Z90.49 Acquired absence of other specified parts of digestive tract; Z90.710 Acquired absence of both cervix and uterus
CPT/HCPCS: 99285; 96360; 36415; 85025; 80053; 81001; 71010; A9270; J7030; S0119